=== PATIENT | female | born 1945 | race Caucasian/White ===

== ENCOUNTER 2019-12-02 11:37 | Emergency (ER) | payer MEDICARE, SELFPAY ==
[2019-12-02 11:46] VITALS: BP 148/76; PULSE 92; RESP 18; TEMP 36.9; O2SAT 94
--- NOTE | 2019-12-02 11:47 | ED.GENADULT ---
HPI - General Adult General Chief complaint: Urogenital-Female Stated complaint: Poss Bladder infection Time Seen by Provider: 12/02/19 12:04 Source: patient and RN notes reviewed Mode of arrival: ambulatory Limitations: no limitations History of Present Illness HPI narrative: This patient awakened this morning with frequency of urination with blood in the urine and suprapubic discomfort, but not real pain. She has not had any back pain or fever. She has had history of UTIs in the past of cystitis but never history of pyelonephritis or kidney stones. Her last UTI was approximately 6 months ago. She has otherwise been feeling well without any ear pain, no nasal drainage, no sore throat, no fever, no cough. She has had no blood in the stools or black stools. She has not had any history of any joint pain or swelling. She has had no arthralgias or myalgias. She is having no vaginal bleeding. Related Data Home Medications Medication Instructions Recorded Confirmed amlodipine 10 mg PO DAILY 12/02/19 12/02/19 Allergies Allergy/AdvReac Type Severity Reaction Status Date / Time amoxicillin Allergy Unknown Unknown Verified 12/02/19 11:43 iodine Allergy Unknown Hives Verified 12/02/19 11:43 Dezdsbq-Ksd-Vfr Reductase Allergy Unknown Unknown Verified 12/02/19 11:43 Inhibitor lisinopril AdvReac Unknown Cough Verified 12/02/19 11:43 Review of Systems Review of Systems: Narrative: CONSTITUTIONAL: Denies fever, chills, or sweats. Noncontributory except as pertains to the past medical history and the history of present illness. EYES: Denies visual changes, redness, or discharge. ENT: Denies rhinorrhea, congestion, sore throat, or otalgia. CARDIOVASCULAR: Denies chest pain, palpitations, or edema. RESPIRATORY: Denies cough or dyspnea. GASTROINTESTINAL: Denies abdominal pain, nausea, vomiting, or diarrhea. GENITOURINARY: Denies dysuria or hematuria. SKIN: Denies rash or itching. MUSCULOSKELETAL: Denies back pain, joint pain, or myalgia. NEUROLOGIC: Denies headache, numbness, or weakness. PSYCHIATRIC: Denies anxiety or depression. [facility] Family History Family History (Updated 01/28/18 @ 08:18 by DOCTOR UNKNOWN) Mother Family history of cardiovascular disease Family history of coronary artery disease Father Family history of lung cancer, Onset Age: 52 Other Carcinoma of colon Social History Social History Smoking status: Former smoker Smoking end date: 11/01/01 Alcohol intake: current Comments At time of signature, I have reviewed and agree with nursing past medical, surgical, social, and family history.Please see nursing chart for further information. There is no relevant family history pertinent to the presenting complaint. Exam Narrative: Exam Narrative: GENERAL: Well-appearing, well-nourished, and in no acute distress. HEAD: Normocephalic, atraumatic. EYES: PERRLA and EOMI. EARS: TM's clear bilaterally and the canals are clear. NOSE: Nares clear, no rhinorrhea or epistaxis. THROAT:Mucous membranes moist.Oropharynx normal without erythema or exudates. NECK: Supple. No adenopathy of the neck, supraclavicular, axillary, or inguinal areas. RESPIRATORY: No respiratory distress. Airway patent. Respirations non-labored. Clear to auscultation. There are no wheezes, no rales, no retractions, no use accessory muscles of respirations. The patient's not cyanotic and not dyspneic. The pulse ox on room air is 94% current temperature is 98.5. HEART: Regular rate and rhythm. No murmur heard. Normal peripheral pulses. ABDOMEN: Soft, nontender, nondistended, normal active bowel sounds.No masses. No rebound or guarding, No organomegaly. No CVA pain. No pain McBurney's point. Patient is a negative Pereira sign and negative Rovsing sign. There are no pulsatile masses no audible bruits. EXTREMITIES: No clubbing/cyanosis/ edema. Normal strength & range of motion. SKIN: Warm, dry.Normal color. There are no skin
== END 2019-12-02 12:38 | disposition home or self-care (01) ==
PROVIDERS: Emergency Provider Family Medicine; PCP Internal Medicine
DX: N30.01 Acute cystitis with hematuria (principal); Z87.891 Personal history of nicotine dependence; E78.00 Pure hypercholesterolemia, unspecified; I10 Essential (primary) hypertension; M19.90 Unspecified osteoarthritis, unspecified site; E03.9 Hypothyroidism, unspecified; F41.9 Anxiety disorder, unspecified; F32.9 Major depressive disorder, single episode, unspecified; Z96.1 Presence of intraocular lens
CPT/HCPCS: 81003; 87077; 87086; 87088; 87186; 99213; G0463

== ENCOUNTER 2020-01-05 14:11 | Emergency (ER) | payer MEDICARE, SELFPAY ==
--- NOTE | ~2020-01-05 | XR_ITS ---
EXAMINATION: XR hand RT min 3V, XR wrist RT min 3V DATE: 01/05/2020 15:01 INDICATION: Generalized right hand and wrist pain post fall TECHNIQUE: 1. Posteroanterior, ulnar deviation, oblique, and lateral views of the right wrist were obtained. 2. Dorsal palmar, oblique and lateral views of the right hand were obtained. COMPARISON: None. FINDINGS: Subtle minimally impacted, nondisplaced transverse fracture of the distal right radius. No definitive intra-articular extension. No other fractures identified although sensitivity for nondisplaced fract ure is decreased by diffuse osteopenia. Advanced osteoarthritis at the right first carpometacarpal joint with remodeling of the bones and pro minent associated hypertrophic changes. There is mild secondary dorsal subluxation and proximal migra tion of the first metacarpal. Moderate osteoarthritis at the second and third metacarpophalangeal tash nts with secondary slight palmar subluxation. Bone alignment is otherwise normal. Additional moderate osteoarthritis at the triscaphe joint. Mild osteoarthritis at the interphalangeal joints with distal predominance. IMPRESSION: 1. Nondisplaced minimally impacted likely extra articular fracture of the distal right radius. 2. 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 Reviewed, dictated and finalized at location A. CADDY IMPRESSION: 1. Nondisplaced minimally impacted likely extra articular fracture of the dista l right radius. 2. 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
[2020-01-05 14:27] VITALS: BP 133/61; PULSE 82; RESP 18; TEMP 36.3; O2SAT 96
--- NOTE | 2020-01-05 15:09 | ED.UPPEXIN ---
HPI - Extremity Injury (Upper) General Chief Complaint: Extremity Injury, Upper Stated Complaint: Injury to Righ Hand Time Seen by Provider: 01/05/20 15:09 Source: patient Mode of arrival: ambulatory Limitations: no limitations History of Present Illness HPI narrative: Saumya Hernández is a 74 yo feale with a PMH of anxiety, high blood pressure, hypothyroid, GERD, high cholesterol, who fell about 1 hour ago across a concrete bumper at the car wash. Fell on left wrist, complaining of pain on the dorsum side of hand and wrist, has minimal voluntary movement because of pain Related Data Home Medications Medication Instructions Recorded Confirmed alprazolam 0.25 mg PO TID PRN 01/05/20 01/05/20 amlodipine 10 mg PO DAILY 01/05/20 01/05/20 levothyroxine 75 mcg PO DAILY 01/05/20 01/05/20 omeprazole 40 mg PO DAILY 01/05/20 01/05/20 pravastatin 40 mg PO HS 01/05/20 01/05/20 Allergies Allergy/AdvReac Type Severity Reaction Status Date / Time amoxicillin Allergy Unknown Unknown Verified 01/05/20 14:45 iodine Allergy Unknown Hives Verified 01/05/20 14:45 Myrypwa-Ura-Xbl Reductase Allergy Unknown Unknown Verified 01/05/20 14:45 Inhibitor lisinopril AdvReac Unknown Cough Verified 01/05/20 14:45 Review of Systems Review of Systems: Narrative: CONSTITUTIONAL: Denies fever, chills, sweats. EYES: Denies visual changes, redness, discharge. ENT: Denies rhinorrhea, congestion, sore throat, otalgia. CARDIOVASCULAR: Denies chest pain, palpitations, edema. RESPIRATORY: Denies dyspnea, wheezing, cough GASTROINTESTINAL: Denies abdominal pain, nausea, vomiting, diarrhea. GENITOURINARY: Denies dysuria, hematuria, abnormal discharge SKIN: Denies rash or itching. NEUROLOGIC: Denies numbness, or focal weakness. PSYCHIATRIC: Denies anxiety or depression. Pain on left wrist dorsal side PMFSH Family History Family History Mother Family history of cardiovascular disease Family history of coronary artery disease Father Family history of lung cancer, Onset Age: 52 Other Carcinoma of colon Social History Social History (Reviewed 01/05/20 @ 15:16 by ZEE Steiner Smoking status: Former smoker Smoking end date: 11/01/01 Alcohol intake: current Comments At time of signature, I agree with nursing past medical, surgical, social and family history. There is no relevant family history pertinent to the presenting complaint. Exam Narrative: Exam Narrative: GENERAL: This is a well-nourished, well-developed patient, in moderate distress. HEAD: normocephalic, atraumatic. EYES: Sclera clear/white. Vision is grossly intact. EARS: External ears normal. Hearing grossly intact. NOSE: External nose normal with no obvious nasal discharge, nares without redness, no rhinorrhea. THROAT: Mucous membranes moist, NECK: Neck supple, non-tender CARDIOVASCULAR: Regular rate and rhythm without murmurs, gallops, or rubs. RESPIRATORY: Clear to auscultation. Breath sounds equal bilaterally. No wheezes, rales, or rhonchi. GASTROINTESTINAL: Abdomen soft, SKIN: warm, intact with no suspicious lesions or rash, good texture and turgor. NEURO: awake, alert, and oriented to person, place and time. There were no obvious focal neurologic abnormalities. Steady gait EXTREMITIES: Normal range of motion. No edema. BACK: Nontender without deformity or crepitance. Course Course Emergency Course: O-ybm-[id number] minimally impacted extra-articular fracture of the right radius Vital Signs Vital signs: Vital Signs Temperature 97.4 F L 01/05/20 14:27 Pulse Rate 82 01/05/20 14:27 Respiratory Rate 18 01/05/20 14:27 Blood Pressure 133/61 01/05/20 14:27 Pulse Oximetry 96 01/05/20 14:27 Temperature 97.4 F L 01/05/20 14:27 Pulse Rate 82 01/05/20 14:27 Respiratory Rate 18 01/05/20 14:27 Blood Pressure 133/61 01/05/20 14:27 Pulse Oximetry 96 01/05/20 14:27
== END 2020-01-05 16:11 | disposition home or self-care (01) ==
PROVIDERS: Emergency Provider Nurse Practitioner
DX: S52.551A Other extraarticular fracture of lower end of right radius, initial encounter for closed fracture (principal); F41.9 Anxiety disorder, unspecified; I10 Essential (primary) hypertension; E03.9 Hypothyroidism, unspecified; K21.9 Gastro-esophageal reflux disease without esophagitis; E78.00 Pure hypercholesterolemia, unspecified; W19.XXXA Unspecified fall, initial encounter; S52.124A Nondisplaced fracture of head of right radius, initial encounter for closed fracture; Z87.891 Personal history of nicotine dependence
CPT/HCPCS: 29125; 73110; 73130; 99214; A4565; G0463

== ENCOUNTER 2020-06-23 12:46 | Emergency (ER) | payer MEDICARE, SELFPAY ==
[2020-06-23 13:02] VITALS: BP 116/62; PULSE 83; RESP 20; TEMP 36.6; O2SAT 96
--- NOTE | 2020-06-23 14:19 | ED.GENADULT ---
HPI - General Adult General Chief complaint: Urogenital-Female Stated complaint: bladder infection Time Seen by Provider: 06/23/20 14:19 Source: patient and RN notes reviewed Mode of arrival: ambulatory Limitations: no limitations History of Present Illness HPI narrative: 74-year-old female presents with urinary complaints for 1 day. Dysuria consist of hemtauria, burning, frequency, and urgency.? No treatment.? Denies fever or chills. No significant pelvic pain. No vaginal discharge.? No concerns for STDs. Exacerbating factors urinating.? Denies vaginal bleeding. Postmenopausal. No flank pain. Denies nausea, vomiting, and abdominal pain.? Tolerating liquids well.? Remains active. The patient reports she have not been diagnosed with COVID-19. The patient reports she is not waiting for the results of a COVID-19 lab test. The patient reports she do not have fever, chills, weakness, fatigue, or myalgia. The patient reports she do not have a new or worsening cough or shortness of breath. Denies chest pain. The patient reports she do not have any rhinorrhea, congestion, sore throat, loss of taste, or diarrhea. Denies recent traveling. Denies concerns for COVID-19 or exposures been home with limited outdoor exposure except for essential household needs and return home. At this time, patient is not suspected of having COVID-19. Some parts of this dictation were generated by voice recognition software and may contain typographical and/or grammatical inaccuracies. Related Data Home Medications Medication Instructions Recorded Confirmed alprazolam 0.25 mg PO TID PRN 01/05/20 06/23/20 amlodipine 10 mg PO DAILY 01/05/20 06/23/20 levothyroxine 75 mcg PO DAILY 01/05/20 06/23/20 omeprazole 40 mg PO DAILY 01/05/20 06/23/20 pravastatin 40 mg PO HS 01/05/20 06/23/20 Allergies Allergy/AdvReac Type Severity Reaction Status Date / Time amoxicillin Allergy Unknown Unknown Verified 06/23/20 13:21 iodine Allergy Unknown Hives Verified 06/23/20 13:21 Dqsktov-Efd-Qsp Reductase Allergy Unknown Unknown Verified 06/23/20 13:21 Inhibitor lisinopril AdvReac Unknown Cough Verified 06/23/20 13:21 Review of Systems Review of Systems: Narrative: CONSTITUTIONAL: Denies fever, chills, sweats. EYES: Denies visual changes, redness, discharge. ENT: Denies rhinorrhea, congestion, sore throat, otalgia. CARDIOVASCULAR: Denies chest pain, palpitations, edema. RESPIRATORY: Denies dyspnea, wheezing, cough. GASTROINTESTINAL: Denies abdominal pain, nausea, vomiting, diarrhea. GENITOURINARY: Complains of dysuria (hematuria, burning, frequency, and urgency). Denies abnormal discharge. SKIN: Denies rash or itching. MUSCULOSKELETAL: Denies acute back pain, joint pain, or myalgia. NEUROLOGIC: Denies numbness or focal weakness. PSYCHIATRIC: Denies anxiety or depression. All systems reviewed & are unremarkable except as noted in HPI and below. [facility] Past Medical History Medical History (Updated 06/24/20 @ 00:00 by Kirby Osei) Anxiety Aortic aneurysm Arthritis Bronchitis Cataract Depression Distal radius fracture, right GERD (gastroesophageal reflux disease) Hernia High cholesterol Hx of migraines Hypertension Hypothyroid Irritable bowel Vision loss Surgical History Surgical History (Updated 06/23/20 @ 14:35 by MARLEY Marin) History of aortic aneurysm repair History of cardiac catheterization History of carpal tunnel release History of carpal tunnel surgery History of cholecystectomy History of hernia surgery Family History Family History Mother Family history of cardiovascular disease Family history of coronary artery disease Father , at age 52 of lungs cancer, smoker Family history of lung cancer, Onset Age: 52 Other Carcinoma of colon Social History Social History (Updated 06/30/20 @ 23:00 by MARLEY Marin) Kianna
== END 2020-06-23 14:45 | disposition home or self-care (01) ==
PROVIDERS: Emergency Provider Nurse Practitioner Family; PCP Internal Medicine
DX: R30.0 Dysuria (principal); R31.9 Hematuria, unspecified; Z87.891 Personal history of nicotine dependence; F41.9 Anxiety disorder, unspecified; M19.90 Unspecified osteoarthritis, unspecified site; K21.9 Gastro-esophageal reflux disease without esophagitis; E78.00 Pure hypercholesterolemia, unspecified; I10 Essential (primary) hypertension; E03.9 Hypothyroidism, unspecified
CPT/HCPCS: 81003; 87077; 87086; 87088; 87186; 99213; G0463

== ENCOUNTER 2020-10-10 09:49 | Outpatient (RCR) | payer MEDICARE, SELFPAY ==
--- NOTE | 2020-10-10 11:02 | PTOPEVAL ---
Thank you for referring Saumya Hernández to [facility].? The patient is scheduled to be seen for therapy? ____x/week for ___ weeks. Please review, sign, date and return this plan of care BERNARD. I agree with and certify that the following plan of care is medically necessary. Referring Physician Date Admitting Provider: Attending Provider: Remigio Mayen MD Referring Provider: *PT Outpatient Evaluation Start: 10/10/20 10:08 Freq: Status: Active Protocol: Document 10/10/20 10:05 [facility] (Rec: 10/10/20 11:01 [facility] [id number]) Therapy Assessment Status Assessment Status Assessment Status Evaluation Outpatient Past Medical History Neurological History Hx Migraine Yes Cardiovascular History Hx Hypercholesterolemia Yes Hx Hypertension Yes Hx Vascular Surgery Yes: AORTIC ANEURYSM REPAIR, CARDIAC CATH., STENTS BARBARA UPPER LEGS Respiratory History Hx Bronchitis Yes Gastrointestinal History Hx Bowel Surgery Yes Hx Cholecystectomy Yes Hx Gall Bladder Disease Yes Hx Hernia Yes Hx Irritable Bowel Yes Genitourinary History Hx Bladder Surgery Yes Musculoskeletal History Hx Arthritis Yes Hx Other Musculoskeletal Disorders Yes: BIALTERAL CARPAL TUNNEL SURGERY. Endocrine History Hx Hypothyroidism Yes HEENT History Hx Other HEENT Disorders Yes: CATARACT LENS IMPLANT. Integumentary History Hx Other Skin Disorders Yes: PRE CAN LESIONS REMOVED FROM SKIN Psychosocial History Hx Anxiety Yes Hx Depression Yes Evaluation Information Problem Diagnosis R hip bursitis, SI pain, scaitica Onset 10/08/20 Subjective Information patient reports she has been Query Text:As Reported By Patient/ having pain in the R hip area Family for about several months. she reports she fell in [place] broke her wrist. she reports the fall was to her R side. she reports the pain in her hip is progressively getting worse. she reports she used to be able to drive for hours without issues. however, now she has pain with short car rides. she reports the pain is on the outside of her R hip.
== END 2020-11-22 17:00 | disposition home or self-care (01) ==
LOC: CHSPT 09:49
PROVIDERS: Visit Provider Orthopaedic Surgery
DX: M70.61 Trochanteric bursitis, right hip (principal); M54.30 Sciatica, unspecified side
CPT/HCPCS: 97014; 97110; 97161; G0283

== ENCOUNTER → 2021-02-28 14:01 | Outpatient (CLI) | payer MEDICARE, SELFPAY ==
--- NOTE | ~2021-02-28 | MM_ITS ---
EXAMINATION: MM screening gem BI w jayme HISTORY: Screening mammogram TECHNIQUE: Craniocaudal and mediolateral oblique 3-D tomosynthesis images were obtained and synthetic 2-D images were generated. CAD analysis was submitted and interpreted. COMPARISON: 05/20/2018, 04/06/2016, 01/2014 bilateral digital screening mammogram examinations BREAST PARENCHYMAL COMPOSITION: There are scattered areas of fibroglandular density. FINDINGS: Stable fibroglandular asymmetry. Scattered bilateral benign calcifications. There is no marcos dence of suspicious mass, calcification, or architectural distortion to suggest malignancy in either breast. There has been no suspicious interval change. IMPRESSION: 1. No mammographic evidence of malignancy. 2. Recommend routine screening mammography in one year. BI-RADS Category 2: Benign finding(s). Reviewed, dictated and finalized at location A.
== END ==
PROVIDERS: PCP Internal Medicine; Visit Provider Internal Medicine
DX: Z12.31 Encounter for screening mammogram for malignant neoplasm of breast (principal)
CPT/HCPCS: 77063; 77067

== ENCOUNTER 2021-09-27 12:07 | Emergency (ER) | payer MEDICARE, SELFPAY ==
[2021-09-27 12:15] VITALS: BP 156/78; PULSE 86; RESP 16; TEMP 36.8; O2SAT 98
--- NOTE | 2021-09-27 13:13 | ED.FEMALEGU ---
HPI - Female Genitourinary General Chief complaint: Urogenital-Female Stated complaint: possible uti Time Seen by Provider: 09/27/21 13:00 Source: patient and RN notes reviewed Mode of arrival: ambulatory Limitations: no limitations History of Present Illness HPI Narrative: Patient presents today complaining of low back pain since last night with dysuria, urgency, frequency, hematuria, and lower abdominal pressure since morning. Denies fever. She has taken some Tylenol today with some relief. MD elicited complaint: UTI Related Data Home Medications Medication Instructions Recorded Confirmed alprazolam 0.25 mg PO TID PRN 01/05/20 09/27/21 amlodipine 10 mg PO DAILY 01/05/20 09/27/21 levothyroxine 75 mcg PO DAILY 01/05/20 09/27/21 omeprazole 40 mg PO DAILY 01/05/20 09/27/21 pravastatin 40 mg PO HS 01/05/20 09/27/21 cetirizine 10 mg tablet 10 mg PO DAILY 01/29/21 09/27/21 Allergies Allergy/AdvReac Type Severity Reaction Status Date / Time iodine Allergy Unknown Hives Verified 09/27/21 12:26 Ajkcghe-VDQ-XoL Reductase Allergy Unknown Unknown Verified 09/27/21 12:26 Inhibitor [Grrlzev-Aar-Bll Reductase Inhibitor] lisinopril AdvReac Unknown Cough Verified 09/27/21 12:26 Review of Systems Review of Systems: CONSTITUTIONAL: Denies body aches, fever, chills, or sweats. EYES: Denies visual changes, redness, or discharge. ENT: Denies rhinorrhea, congestion, sore throat, or otalgia. CARDIOVASCULAR: Denies chest pain, palpitations, or edema. RESPIRATORY: Denies cough or dyspnea. GASTROINTESTINAL: Denies abdominal pain, nausea, vomiting, or diarrhea. GENITOURINARY: + Dysuria, urgency, frequency, hematuria, lower abdominal pressure SKIN: Denies rash, itching, or wounds. MUSCULOSKELETAL: Denies joint pain, or myalgia. + Low back pain NEUROLOGIC: Denies headache, numbness, tingling, or weakness. PSYCH: Denies depression or anxiety. [facility] Past Medical History Medical History Anxiety Aortic aneurysm Arthritis Bronchitis Cataract Depression Distal radius fracture, right Dizziness GERD (gastroesophageal reflux disease) Hearing loss Hernia High cholesterol Hip pain Hx of migraines Hypertension Hypothyroid Irritable bowel Sacroiliac joint pain Sciatic leg pain Trochanteric bursitis, right hip Vision loss Surgical History Surgical History History of aortic aneurysm repair History of cardiac catheterization History of carpal tunnel release History of carpal tunnel surgery History of cholecystectomy History of hernia surgery Family History Family History Mother Family history of cardiovascular disease Family history of coronary artery disease Father , at age 52 of lungs cancer, smoker Family history of lung cancer, Onset Age: 52 Other Carcinoma of colon Social History Social History Smoking status: Former smoker Tobacco type: cigarettes Second hand tobacco smoke exposure: Yes Smoking end date: 11/01/01 Alcohol intake: current Substance use: never Gender identity (if verbalized by the patient): Female Sexual Orientation (if Verbalized by the Patient): Straight or Heterosexual Comments At time of signature, I have reviewed and agree with nursing past medical, surgical, social and family history unless otherwise noted. Please see nursing chart for further information. There is no relevant family history pertinent to the presenting complaint Exam Narrative: GENERAL: Well-appearing, well-nourished, and in no acute distress. HEAD: Normocephalic, atraumatic. EYES: EOMI. No redness or drainage. Conjunctivae normal. ENT: Mucous membranes pink and moist. NECK: Normal AROM. CHEST: No respiratory distress. Zuleika
== END 2021-09-27 13:21 | disposition home or self-care (01) ==
PROVIDERS: Emergency Provider Nurse Practitioner; PCP Internal Medicine
DX: N30.01 Acute cystitis with hematuria (principal); Z87.891 Personal history of nicotine dependence; M19.90 Unspecified osteoarthritis, unspecified site; K21.9 Gastro-esophageal reflux disease without esophagitis; E78.00 Pure hypercholesterolemia, unspecified; I10 Essential (primary) hypertension; E03.9 Hypothyroidism, unspecified; F41.9 Anxiety disorder, unspecified
CPT/HCPCS: 81003; 87077; 87086; 87186; 99213; G0463

== ENCOUNTER 2022-09-12 10:57 | Inpatient (IN) | payer MEDICARE, SELFPAY ==
[2022-09-12] VITALS (13 sets, daily range): BP systolic 107–166; BP diastolic 54–82; PULSE 73–107; RESP 14–20; TEMP 36.3–36.7; O2SAT 84–99
--- NOTE | ~2022-09-12 | CT_ITS ---
EXAMINATION: CT abdomen pelvis w con DATE: 09/13/2022 09:32 INDICATION: Hematuria TECHNIQUE: Computed tomography (CT) of the abdomen and pelvis was performed with 100 CC Omnipaque 350 intravenous contrast. Automated exposure control and iterative reconstruction technique were employe d. Exam dose: 517.99 mGy-cm total exam DLP. COMPARISON: 09/22/2020 CTA chest abdomen pelvis FINDINGS: Moderate emphysematous changes of the lungs. There is prominent patchy right lower lobe and minimal middle lobe infiltrate and/or atelectasis. Mild cardiomegaly. No pericardial or pleural effusion. Very large hiatal hernia containing the majority of the stomach. Several small hepatic cysts. The nubia er measures up to 23 cm vertical dimension. No hepatic surface nodularity is noted. Normal splenic si ze. Scattered calcified splenic granulomas. The gallbladder is absent. No bile duct or pancreatic duct dilatation. There are multiple pancreatic calcifications consistent with chronic pancreatitis. Normal right adrenal gland. Stable or retroperitoneal lymph to approximately 3 x 4.5 cm heterogeneously enhancing oval soft tissu e mass is noted at the posterior aspect of the left adrenal gland, situated along the superomedial as pect of the upper pole of the left kidney, unchanged in size since 09/22/2021 CTA chest abdomen pelvi s examination. No suspicious renal mass lesion is noted. No urinary tract calculus or hydroureteronephrosis. The uri nary bladder is unremarkable. Status post hysterectomy. Endovascular stents of the descending thoracic aorta and infrarenal abdominal aorta and common iliac arteries, stable in appearance since 09/22/2021. No intraperitoneal or retroperitoneal or pelvic mass lesion or adenopathy or ascites. Diverticulosis of the colon; no CT evidence of diverticulitis. No bowel obstruction or intraperitonea l free air. Tarlov cysts are noted in the sacral area. Severe degenerative disc disease at L5-S1. Moderately severe degenerative disc disease at L1-2 and L2 -3. Mild retrolisthesis at L3-4. No suspicious osteolytic or osteoblastic lesions. IMPRESSION: No urinary tract mass lesion, calculus or hydroureteronephrosis. Stable approximately 3 x 4.5 cm enhancing probable left adrenal mass, stable since 09/22/2021 Hepatomegaly Chronic pancreatitis Large hiatal hernia containing the majority the stomach Diverticulosis of the colon Descending thoracic aortic and infrarenal abdominal aortic and common iliac stents Reviewed, dictated and finalized at [facility]. Reviewed, dictated and finalized at [facility]. [employer] SUPERVISOR IMPRESSION: No urinary tract mass lesion, calculus or hydroureteronephrosis. Stable approximately 3 x 4.5 cm enhancing probable left adrenal mass, stable si nce 09/22/2021 Hepatomegaly Chronic pancreatitis Large hiatal hernia containing the majority the stomach Diverticulosis of the colon Descending thoracic aortic and infrarenal abdominal aortic and common iliac gaston nts
--- NOTE | ~2022-09-12 | XR_ITS ---
EXAMINATION: XR chest 2V DATE: 09/12/2022 11:39 INDICATION: Productive cough and shortness of breath TECHNIQUE: AP and lateral views of the chest are obtained. COMPARISON: 05/28/2009 FINDINGS: The lungs are hyperinflated but free of acute opacities. No pleural effusion or pneumothora x. The cardiomediastinal silhouette is normal. There is moderate thoracic spondylosis. There is endol uminal stent grafts repair of the distal thoracic and upper abdominal aorta. IMPRESSION: 1. No acute cardiopulmonary abnormality. Reviewed, dictated and finalized at [facility]. [employer] SPECIALIST
[2022-09-12] MEDS: ALBUTEROL SULFATE NEB 2.5 MG/3 ML INH 15 MG INHALATION (11:36)
[2022-09-12] MEDS: IPRATROPIUM BR 0.02% INH SOLN 0.5 MG/2.5 ML VIAL 1.5 MG INHALATION (11:36)
[2022-09-12] MEDS: methylPREDNISolone SOD SUCC 125 MG VIAL IV PUSH (11:58)
[2022-09-12 12:16] LABS: Basophils Percent Auto 0.3 % (0.2-1.2); Eosinophils Absolute Auto 0.1 K/mm3 (0-0.3); Eosinophils Percent Auto 0.9 % (0-4.4); Hematocrit 47.2 % (37.0-47.0); Hemoglobin 14.7 g/dL (12.0-15.0); Immature Granulocyte Absolute 0.03 K/mm3 (0.00-0.031); Immature Granulocyte Percent A 0.3 % (0-0.5); Lymphocytes Absolute Auto 1.57 K/mm3 (0.9-3.2); Lymphocytes Percent Auto 15.6 % (18.3-44.2); Mean Corpuscular HGB Conc 31.1 g/dl (32-36); Mean Corpuscular Hemoglobin 29.9 pg (26-34); Mean Corpuscular Volume 96.1 fl (80-100); Mean Platelet Volume 9.8 fl (7.4-10.4); Monocytes Absolute Auto 0.8 K/mm3 (0.1-0.6); Monocytes Percent Auto 7.8 % (2.6-8.5); Neutrophils Absolute Auto 7.6 K/mm3 (1.3-6.7); Neutrophils Percent Auto 75.1 % (45.5-73.1); Platelet Count Result 169 k/mm3 (150-375); Red Blood Count 4.91 M/mm3 (4.2-5.4); Red Cell Distribution Width 15.6 % (11.5-14.5); White Blood Count 10.1 K/mm3 (4.5-10.0)
[2022-09-12 12:26] LABS: Anion Gap 8 mmol/L (8-16); Blood Urea Nitrogen 18 mg/dL (7-17); Calcium 8.5 mg/dL (8.4-10.2); Carbon Dioxide 32 mmol/L (22-30); Chloride 100 mmol/L (98-107); Estimated CRCL calculation 53 ml/min; Estimated Glomerular Filt Rate > 60; Glucose 88 mg/dL (65-110); Potassium 3.9 mmol/L (3.4-5.0); Sodium 140 mmol/L (137-145)
[2022-09-12 12:52] LABS: SARS-CoV-2 RNA PCR Negative
--- NOTE | 2022-09-12 13:22 | ED.GENADULT ---
HPI - General Adult General Chief complaint: Upper Respiratory Infection Stated complaint: cough, failed antibiotic therapy, dyspnea Time Seen by Provider: 09/12/22 11:17 History of Present Illness HPI narrative: Patient is a 77-year-old female who presents ER with cough. Reports over the last 3 weeks she has had persistent cough that is productive of green sputum. She has been on Augmentin, cefdinir, and azithromycin without improvement. She is having increased shortness of breath. No fevers or chills or sweats. No chest pain or chest pressure. Patient does have history of COPD. Related Data Home Medications Medication Instructions Recorded Confirmed alprazolam 0.25 mg tablet 0.25 mg PO TID PRN Anxiety 01/05/20 09/27/21 amlodipine 10 mg tablet 10 mg PO DAILY 01/05/20 09/27/21 levothyroxine 75 mcg tablet 75 mcg PO DAILY 01/05/20 09/27/21 omeprazole 40 mg capsule,delayed 40 mg PO DAILY 01/05/20 09/27/21 release pravastatin 40 mg tablet 40 mg PO HS 01/05/20 09/27/21 cetirizine 10 mg tablet (Zyrtec) 10 mg PO DAILY 01/29/21 09/27/21 Allergies Allergy/AdvReac Type Severity Reaction Status Date / Time iodine Allergy Unknown Hives Verified 09/27/21 12:26 Igknkzy-SPL-GnF Reductase Allergy Unknown Unknown Verified 09/27/21 12:26 Inhibitor [Xtfvdpp-Mnt-Hya Reductase Inhibitor] lisinopril AdvReac Unknown Cough Verified 09/27/21 12:26 Review of Systems Review of Systems: All systems reviewed & are unremarkable except as noted in HPI and below Constitutional: Constitutional: Denies chills, Reports fatigue and Denies fever(s) ENT: Denies nasal congestion and Denies sore throat Cardiovascular: Cardiovascular: Denies chest pain, Denies rapid heart rate and Denies radiating jaw, neck or arm pain Respiratory: Respiratory: Reports cough, Reports dyspnea and Denies wheezing Gastrointestinal: Gastrointestinal: Denies abdominal pain, Denies nausea and Denies vomiting [facility] Past Medical History Medical History Anxiety Aortic aneurysm Arthritis Bronchitis Cataract Depression Distal radius fracture, right Dizziness GERD (gastroesophageal reflux disease) Hearing loss Hernia High cholesterol Hip pain Hx of migraines Hypertension Hypothyroid Irritable bowel Sacroiliac joint pain Sciatic leg pain Trochanteric bursitis, right hip Vision loss Surgical History Surgical History History of aortic aneurysm repair History of cardiac catheterization History of carpal tunnel release History of carpal tunnel surgery History of cholecystectomy History of hernia surgery Family History Family History Mother Family history of cardiovascular disease Family history of coronary artery disease Father , at age 52 of lungs cancer, smoker Family history of lung cancer, Onset Age: 52 Other Carcinoma of colon Social History Social History Smoking status: Former smoker Tobacco type: cigarettes Second hand tobacco smoke exposure: Yes Smoking end date: 11/01/01 Alcohol intake: current Substance use: never Gender identity (if verbalized by the patient): Female Sexual Orientation (if Verbalized by the Patient): Straight or Heterosexual Exam Narrative: GENERAL: Well-appearing, well-nourished, and in no acute distress. HEAD: Normocephalic, atraumatic. EYES: PERRL and EOMI. ENT: Mucous membranes moist. CHEST: Rhonchi and wheezing right lung zones. Mild. Diminished on left side.. No respiratory distress. HEART: Regular rate and rhythm. Normal peripheral pulses. ABDOMEN: Soft, nontender, nondistended. EXTREMITIES: Normal range of motion. No edema. SKIN: Warm, dry, no rash. NEURO: Alert and oriented x3. PSYCH: Normal mood and affec
[2022-09-12] MEDS: SODIUM CHLORIDE 0.9% IV 1,000 ML 999 ML IV CONT (13:56)
[2022-09-12 14:18] LABS: Appearance Urine Slightly Cloudy (Clear); Bilirubin Urine 2+ (Negative); Blood Urine 3+ (Negative); Glucose Urine UA Negative (Negative); Ketones Urine Trace mg/dL (Negative); Leukocyte Esterase Ur 1+ LEU/UL (Negative); Nitrate Urine Negative (Negative); Protein Urine 2+ mg/dL (Negative); Specific Grav Ur >= 1.030 (1.001-1.035); pH Urine 5.5 (5.0-9.0)
[2022-09-12 14:32] LABS: Mucus Urine Few /lpf; RBC Urine >75 /hpf (0-2); Squamous Epithelial Cell Urine Occasional /hpf (Few); WBC Urine >75 /hpf
[2022-09-12 14:34] LABS: Add Urine Microscopic? YES; Color Urine Dark Yellow (Yellow)
--- NOTE | 2022-09-12 15:00 | PM.IMHP ---
H&P: HPI History of Present Illness Date/Time: 09/12/22 15:00 Chief Complaint: Cough and shortness of breath. Narrative: This is a very pleasant 77-year-old female with suspected chronic obstructive pulmonary disease though she has not had a formal diagnosis of such, hypertension, hyperlipidemia, hypothyroidism, and anxiety presented to the emergency department from home for evaluation of cough and shortness of breath. She has not felt well for last 3 weeks and reports a persistent cough productive of green-yellow sputum, wheezing, and dyspnea on exertion. She has a rescue inhaler at home that she has used a couple of times though has not seemed to help. She has been prescribed several rounds of antibiotics including azithromycin, cefdinir, and amoxicillin-clavulanic acid and she reports that her symptoms have not improved whatsoever. SpO2 was 84% on room air on arrival to the emergency department and all other vital signs were unremarkable. She was placed on 4 liters nasal cannula and received a nebulizer treatment as well as Solu-Medrol IV and she reports feeling better at the time my evaluation. Again she has never been formally diagnosed with COPD and is not on maintenance inhalers at home. She was referred to a obstetrical nurse this summer but had to cancel the appointment after the of her sister and that was not rescheduled. She denies fever, chills, and sweats. She has had some chest discomfort and upper abdominal discomfort with coughing but she denies exertional chest pain. Appetite has been okay. She has not had nausea or vomiting. No sick contacts or recent travel. Review of Systems Review of Systems: Twelve systems were reviewed. She has chronic sinus issues. She reports chronic dyspnea on exertion and occasional wheezing. This has been ongoing for years. No orthopnea, paroxysmal nocturnal dyspnea, or lower extremity edema. She denies pleuritic chest pain. No dysphagia or concerns for aspiration. She has had some mild dysuria and she reports that her urine has been dark the last several days. She has not had low back or flank pain. No history of kidney stones. Except as documented, all other systems were reviewed and are negative. [facility] Past Medical History Medical History (Updated 09/12/22 @ 19:43 by Swapna Giraldo PA-C) Anxiety Aortic aneurysm Arthritis Depression Distal radius fracture, right Gastroesophageal reflux disease Hearing loss Hyperlipidemia Hypertension Hypothyroidism Irritable bowel Suspected chronic obstructive pulmonary disease based on initial evaluation Vision loss Surgical History Surgical History (Updated 09/12/22 @ 19:32 by Swapna Giraldo PA-C) History of aortic aneurysm repair History of bilateral carpal tunnel release History of cardiac catheterization History of cholecystectomy History of hernia surgery History of partial hysterectomy History of vascular surgery Lower extremity stents. Family History Family History Mother Family history of cardiovascular disease Family history of coronary artery disease Father , at age 52 of lungs cancer, smoker Family history of lung cancer, Onset Age: 52 Other Carcinoma of colon Social History Social History (Updated 09/12/22 @ 14:21 by Swapna Giraldo PA-C) Social History: Surrogate medical decision maker: Aaron Hernández, spouse. Code status: Full code. Smoking packs per day: 1 Smoking cigarettes per day: 20.0 Years smoked: 43 Smoking pack-years: 43.00 Smoking status: Former smoker Tobacco type: cigarettes Second hand tobacco smoke exposure: Yes Smoking end date: 11/01/01 Alcohol intake: never Substance use: never Substance use type: does not use Lack of Transportation: No Lack of Food: Never True Current Housing: I Have Housing Concerned About Future Housing: No Difficulty Paying Gas/Electric Bills: No
--- NOTE | 2022-09-12 15:21 | PC.NURSE ---
heart healthy standard food tray ordered
--- NOTE | 2022-09-12 16:31 | PCRCNOTE ---
Window of time for administration has passed. See next scheduled administration.
--- NOTE | 2022-09-12 17:16 | ADMGEN ---
This patient, Saumya Hernández, was admitted to [address] [place] [address] Room 300-01. Patient/family oriented to hospital policies and general routines including ID bracelet, bed and alarms, visiting hours, pain management, procedures, bathroom and other care routines, personal items, smoking policy, room service/diet, and visiting hours. Information on how to activate the Rapid Response Team has been discussed. Patient/Family are encouraged to report perceived risks to care and to ask questions if they do not understand what they are told or what they should do.
[2022-09-12] MEDS: SODIUM CHLORIDE 0.9% IV 1,000 ML 125 ML IV CONT (18:47)
[2022-09-12] MEDS: ACETAMINOPHEN 325 MG TABLET 650 MG PO (18:50)
[2022-09-12] MEDS: methylPREDNISolone SOD SUCC 125 MG VIAL 60 MG IV PUSH (20:32)
[2022-09-12] MEDS: guaiFENesin 12 HR 600 MG TABCR PO (20:35)
[2022-09-12] MEDS: PRAVASTATIN SODIUM 20 MG TABLET 40 MG PO (20:36)
[2022-09-12] MEDS: ALBUTEROL SULFATE NEB 2.5 MG/3 ML INH 5 MG INHALATION (21:18)
[2022-09-12] MEDS: IPRATROPIUM BR 0.02% INH SOLN 0.5 MG/2.5 ML VIAL INHALATION (21:18)
[2022-09-12] MEDS: ALPRAZolam (*CRX) 0.25 MG TABLET PO (23:17)
[2022-09-13] VITALS (8 sets, daily range): BP systolic 131–140; BP diastolic 63–76; PULSE 70–84; RESP 16–24; TEMP 36.2–36.5; O2SAT 92–95
[2022-09-13] MEDS: IPRATROPIUM BR 0.02% INH SOLN 0.5 MG/2.5 ML VIAL INHALATION ×3 (02:12→14:11)
[2022-09-13] MEDS: ALBUTEROL SULFATE NEB 2.5 MG/3 ML INH 5 MG INHALATION ×3 (02:13→14:11)
[2022-09-13] MEDS: methylPREDNISolone SOD SUCC 125 MG VIAL 60 MG IV PUSH ×4 (02:20→16:56)
[2022-09-13] MEDS: LEVOTHYROXINE SODIUM 75 MCG TABLET PO (05:41)
[2022-09-13 06:56] LABS: Hematocrit 40.1 % (37.0-47.0); Hemoglobin 12.3 g/dL (12.0-15.0); Mean Corpuscular HGB Conc 30.7 g/dl (32-36); Mean Corpuscular Hemoglobin 29.1 pg (26-34); Mean Corpuscular Volume 94.8 fl (80-100); Mean Platelet Volume 10.4 fl (7.4-10.4); Platelet Count Result 160 k/mm3 (150-375); Red Blood Count 4.23 M/mm3 (4.2-5.4); Red Cell Distribution Width 15.3 % (11.5-14.5); White Blood Count 8.1 K/mm3 (4.5-10.0)
[2022-09-13 07:07] LABS: Alanine Aminotransferase 15 U/L (6-35); Albumin Level 3.7 g/dL (3.5-5.1); Alkaline Phosphatase 80 U/L (38-126); Anion Gap 11 mmol/L (8-16); Aspartate Amino Transferase 23 U/L (14-36); Bilirubin,Total 0.3 mg/dL (0.2-1.3); Blood Urea Nitrogen 14 mg/dL (7-17); Calcium 7.7 mg/dL (8.4-10.2); Carbon Dioxide 30 mmol/L (22-30); Chloride 100 mmol/L (98-107); Estimated CRCL calculation 69 ml/min; Estimated Glomerular Filt Rate > 60; Glucose 140 mg/dL (65-110); Magnesium 1.6 mg/dL (1.6-2.3); Potassium 3.7 mmol/L (3.4-5.0); Sodium 141 mmol/L (137-145)
[2022-09-13] MEDS: diphenhydrAMINE HCl INJ 50 MG/ML VIAL IV PUSH (07:54)
[2022-09-13] MEDS: guaiFENesin 12 HR 600 MG TABCR PO ×2 (07:55→20:24)
[2022-09-13] MEDS: LORATADINE 10 MG TABLET PO (07:55)
[2022-09-13] MEDS: amLODIPine BESYLATE 5 MG TABLET 10 MG PO (07:55)
[2022-09-13] MEDS: PANTOPRAZOLE 40 MG TABLET PO ×2 (10:43→20:24)
--- NOTE | 2022-09-13 13:45 | PM.IMPN ---
Progress Note: A&P Assessment and Plan (1) Hypoxia: Code(s): R09.02 - Hypoxemia Status: Acute Assessment and Plan: Hypoxic on presentation had 84%. Likely secondary to suspected COPD exacerbation. Currently maintaining adequate O2 saturations on 4 L supplemental oxygen. Continue supplemental oxygen and wean as tolerated to goal saturations 92% or above. Home O2 eval prior to discharge (2) COPD exacerbation: Code(s): J44.1 - Chronic obstructive pulmonary disease with (acute) exacerbation Status: Suspected Assessment and Plan: Patient presented with ongoing productive cough and shortness of breath following completion of 3 antibiotic therapies. No findings to suggest pneumonia. Clinically, symptoms are consistent with COPD exacerbation. Continue Solu-Medrol 60 mg IV q.6. Wean as tolerated. Continue scheduled albuterol and ipratropium nebs q6h. Supportive care. Plan for outpatient pulmonology follow-up for PFTs and likely initiation of maintenance inhalers (3) Abnormal urinalysis: Code(s): R82.90 - Unspecified abnormal findings in urine Status: Acute Assessment and Plan: UA abnormal on presentation and patient endorsed dark urine over the past several days. Urine culture is pending. Holding antibiotics while awaiting culture results (4) Hematuria: Code(s): R31.9 - Hematuria, unspecified Status: Acute Assessment and Plan: As above, patient endorse dark urine. UA with 3+ blood. CT of the abdomen/pelvis has been completed for evaluation, pending radiology interpretation (5) Hypertension: Code(s): I10 - Essential (primary) hypertension Status: Acute Assessment and Plan: Blood pressures have been stable. Last BP 140/76. Continue amlodipine (6) Hypothyroidism: Code(s): E03.9 - Hypothyroidism, unspecified Status: Acute Assessment and Plan: Check TSH. Continue levothyroxine (7) Electrolyte abnormality: Code(s): E87.8 - Other disorders of electrolyte and fluid balance, not elsewhere classified Status: Acute Assessment and Plan: Magnesium is 1.6 today. Will administer 2 g IV magnesium sulfate. Calcium 7.7 with normal albumin, will begin Oscal BID. Subjective Date/time seen: 09/13/22 13:45 Interval history: Date of service: 09/13/2022 Saumya Hernández is a 69-year-old female with a history of anxiety, depression, aortic aneurysm, hypertension, hyperlipidemia, hypothyroidism, IBS, suspected COPD, and GERD who is seen in follow-up for COPD exacerbation. Today patient complains of weakness and persistent cough. Stated that her cough is been going on for several weeks and became so severe that she would almost pass out from coughing. This seems improved now she is coughing less frequently. She endorses yellow sputum production, noting as previously green. She also complains of sinus congestion. Endorses dyspnea on exertion conversational dyspnea, but shortness of breath at rest has improved significantly. She denies wheezing. She does have pleuritic chest pain with cough. She is not on home oxygen. She denies abdominal pain, nausea, vomiting, fever, chills, dizziness, lightheadedness. Reports a good appetite. States her last bowel movements 2 days ago. Denies urinary symptoms including hematuria. Review of Systems Review of Systems: All systems reviewed & are unremarkable except as noted in HPI and below Exam Narrative: General: Well-nourished, well-appearing 77-year-old female, sitting up in bed, comfortable, NARD Neuro: awake, alert and oriented x4, speech clear, no focal neuro deficits noted HEENMT: normocephalic, atraumatic, EOMI, sclerae anicteric, moist oral mucosa Respiratory: Diminished breath sounds bilaterally without obvious crackles, rhonchi, wheezes, nonlabored breathing Cardio: regular rate, regular rhythm with S1-S2 Abdomen: nondistended, no
[2022-09-13] MEDS: MAGNESIUM SULF 2 GM/WATER 50ML 2 GM/50 ML BAG IVPB (16:54)
[2022-09-13] MEDS: CALCIUM CARBONATE (OSCAL) 500 MG TABLET PO (16:55)
[2022-09-13] MEDS: PRAVASTATIN SODIUM 20 MG TABLET 40 MG PO (20:24)
[2022-09-13] MEDS: ALPRAZolam (*CRX) 0.25 MG TABLET PO (22:12)
[2022-09-13] MEDS: ACETAMINOPHEN 325 MG TABLET 650 MG PO (22:15)
--- NOTE | 2022-09-13 22:54 | PCRCNOTE ---
Window of time for administration has passed. See next scheduled administration.
[2022-09-14] VITALS (13 sets, daily range): BP systolic 108–117; BP diastolic 55–79; PULSE 75–93; RESP 18–22; TEMP 36.1–36.4; O2SAT 90–95
[2022-09-14] MEDS: IPRATROPIUM BR 0.02% INH SOLN 0.5 MG/2.5 ML VIAL INHALATION ×4 (02:46→20:21)
[2022-09-14] MEDS: ALBUTEROL SULFATE NEB 2.5 MG/3 ML INH 5 MG INHALATION ×4 (02:47→20:21)
[2022-09-14] MEDS: LEVOTHYROXINE SODIUM 75 MCG TABLET PO (05:46)
[2022-09-14] MEDS: methylPREDNISolone SOD SUCC 125 MG VIAL 60 MG IV PUSH ×4 (05:46→21:18)
[2022-09-14 07:13] LABS: Hematocrit 40.2 % (37.0-47.0); Hemoglobin 12.6 g/dL (12.0-15.0); Mean Corpuscular HGB Conc 31.3 g/dl (32-36); Mean Corpuscular Hemoglobin 29.7 pg (26-34); Mean Corpuscular Volume 94.8 fl (80-100); Mean Platelet Volume 10.1 fl (7.4-10.4); Platelet Count Result 172 k/mm3 (150-375); Red Blood Count 4.24 M/mm3 (4.2-5.4); Red Cell Distribution Width 15.8 % (11.5-14.5); White Blood Count 17.5 K/mm3 (4.5-10.0)
[2022-09-14 07:40] LABS: Alanine Aminotransferase 19 U/L (6-35); Albumin Level 3.6 g/dL (3.5-5.1); Alkaline Phosphatase 79 U/L (38-126); Anion Gap 11 mmol/L (8-16); Aspartate Amino Transferase 25 U/L (14-36); Bilirubin,Total 0.2 mg/dL (0.2-1.3); Blood Urea Nitrogen 16 mg/dL (7-17); Calcium 7.9 mg/dL (8.4-10.2); Carbon Dioxide 32 mmol/L (22-30); Chloride 97 mmol/L (98-107); Estimated CRCL calculation 60 ml/min; Estimated Glomerular Filt Rate > 60; Glucose 136 mg/dL (65-110); Magnesium 2.1 mg/dL (1.6-2.3); Potassium 3.5 mmol/L (3.4-5.0); Sodium 140 mmol/L (137-145)
[2022-09-14] MEDS: amLODIPine BESYLATE 5 MG TABLET 10 MG PO (09:26)
[2022-09-14] MEDS: CALCIUM CARBONATE (OSCAL) 500 MG TABLET PO ×2 (09:27→16:56)
[2022-09-14] MEDS: guaiFENesin 12 HR 600 MG TABCR PO ×2 (09:27→21:19)
[2022-09-14] MEDS: PANTOPRAZOLE 40 MG TABLET PO ×2 (09:27→21:19)
[2022-09-14] MEDS: LORATADINE 10 MG TABLET PO (09:27)
[2022-09-14] MEDS: ACETAMINOPHEN 325 MG TABLET 650 MG PO (09:39)
[2022-09-14] MEDS: SULFAMETHOXAZOLE/TRIMETHOPRIM 800/160 MG DS TABLET 1 TAB PO (15:49)
--- NOTE | 2022-09-14 16:57 | PM.IMPN ---
Progress Note: A&P Assessment and Plan (1) Hypoxia: Code(s): R09.02 - Hypoxemia Status: Acute Assessment and Plan: Hypoxic on presentation at 84%. Likely secondary to suspected COPD exacerbation. she has required up to 4 L supplemental O2.Currently maintaining adequate O2 saturations on 3 L. Wean oxygen as tolerated to goal saturations 92% or above. Home O2 eval prior to discharge (2) COPD exacerbation: Code(s): J44.1 - Chronic obstructive pulmonary disease with (acute) exacerbation Status: Suspected Assessment and Plan: Patient presented with ongoing productive cough and shortness of breath following completion of 3 antibiotic therapies. No findings to suggest pneumonia. Clinically, symptoms are consistent with COPD exacerbation. wean IV Solu-Medrol to 60 mg IV Q 8 hours. Continue scheduled albuterol and ipratropium nebs q6h. Supportive care. Plan for outpatient pulmonology follow-up for PFTs and likely initiation of maintenance inhalers (3) Abnormal urinalysis: Code(s): R82.90 - Unspecified abnormal findings in urine Status: Acute Assessment and Plan: UA abnormal on presentation and patient endorsed dark urine over the past several days. Urine culture with growth of Klebsiella aerogenes, resistant to Ceftriaxone which has now been discontinued. Transition to PO Bactrim for 5 days PO antibiotic therapy. (4) Hematuria: Code(s): R31.9 - Hematuria, unspecified Status: Acute Assessment and Plan: As above, patient endorse dark urine. UA with 3+ blood. CT of the abdomen/pelvis completed which does not reveal mass lesion of the urinary tract, calculus, or hydroureteronephrosis. hematuria resolved. Likely due to UTI as above (5) Hypertension: Code(s): I10 - Essential (primary) hypertension Status: Acute Assessment and Plan: Blood pressures have been stable. Continue amlodipine (6) Hypothyroidism: Code(s): E03.9 - Hypothyroidism, unspecified Status: Acute Assessment and Plan: TSH is pending. Continue levothyroxine (7) Electrolyte abnormality: Code(s): E87.8 - Other disorders of electrolyte and fluid balance, not elsewhere classified Status: Acute Assessment and Plan: magnesium improved to 2.1 today. Calcium improved to 7.9. Continue p.o. Oscal [address] of abdomen/ pelvis revealed left adrenal mass of stable size since prior CTA on 09/22/2021. Continue with outpatient monitoring Subjective Date/time seen: 09/14/22 16:57 Interval history: Date of service: 09/14/2022 Saumya Hernández is a 69-year-old female with a history of anxiety, depression, aortic aneurysm, hypertension, hyperlipidemia, hypothyroidism, IBS, suspected COPD, and GERD who is seen in follow-up for COPD exacerbation. states she feels poorly today. She is feeling blah. she feels like her shortness breath is slightly worsened. She complains of wheezing that is unchanged. Also endorses sinus drainage. She is coughing less often and feels that she has sputum that she needs to expect rate but she is not able to. She is able to ambulate with her walker and denies dizziness, lightheadedness, unsteadiness. Her appetite is down today. She denies fevers or chills. No chest pain. Review of Systems Review of Systems: All systems reviewed & are unremarkable except as noted in HPI and below Exam Narrative: General: Well-nourished, well-appearing 77-year-old female, sitting up in bed, comfortable, NARD Neuro: awake, alert and oriented x4, speech clear, no focal neuro deficits noted HEENMT: normocephalic, atraumatic, EOMI, sclerae anicteric, moist oral mucosa Respiratory: Diminished breath sounds bilaterally with expiratory wheezes, nonlabored breathing Cardio: regular rate, regular rhythm with S1-S2 Abdomen: nondistended, normoactive bowel sounds, soft, nontender to palpat
[2022-09-14] MEDS: ALPRAZolam (*CRX) 0.25 MG TABLET PO (21:19)
[2022-09-14] MEDS: PRAVASTATIN SODIUM 20 MG TABLET 40 MG PO (21:19)
[2022-09-15] VITALS (14 sets, daily range): BP systolic 112–128; BP diastolic 54–74; PULSE 86–114; RESP 14–20; TEMP 36.2–36.7; O2SAT 91–94
[2022-09-15] MEDS: IPRATROPIUM BR 0.02% INH SOLN 0.5 MG/2.5 ML VIAL INHALATION ×4 (01:09→20:27)
[2022-09-15] MEDS: ALBUTEROL SULFATE NEB 2.5 MG/3 ML INH 5 MG INHALATION ×4 (01:09→20:27)
[2022-09-15] MEDS: LEVOTHYROXINE SODIUM 75 MCG TABLET PO (05:43)
[2022-09-15] MEDS: methylPREDNISolone SOD SUCC 125 MG VIAL 60 MG IV PUSH (05:43)
[2022-09-15 06:28] LABS: Hematocrit 40.3 % (37.0-47.0); Hemoglobin 12.4 g/dL (12.0-15.0); Mean Corpuscular HGB Conc 30.8 g/dl (32-36); Mean Corpuscular Hemoglobin 29.4 pg (26-34); Mean Corpuscular Volume 95.5 fl (80-100); Mean Platelet Volume 10.6 fl (7.4-10.4); Platelet Count Result 188 k/mm3 (150-375); Red Blood Count 4.22 M/mm3 (4.2-5.4); Red Cell Distribution Width 15.7 % (11.5-14.5); White Blood Count 17.8 K/mm3 (4.5-10.0)
[2022-09-15 06:42] LABS: Anion Gap 10 mmol/L (8-16); Blood Urea Nitrogen 22 mg/dL (7-17); Calcium 8.3 mg/dL (8.4-10.2); Carbon Dioxide 31 mmol/L (22-30); Chloride 98 mmol/L (98-107); Estimated CRCL calculation 53 ml/min; Estimated Glomerular Filt Rate > 60; Glucose 121 mg/dL (65-110); Potassium 3.9 mmol/L (3.4-5.0); Sodium 139 mmol/L (137-145)
[2022-09-15] MEDS: CALCIUM CARBONATE (OSCAL) 500 MG TABLET PO ×2 (07:47→17:12)
[2022-09-15] MEDS: ACETAMINOPHEN 325 MG TABLET 650 MG PO (07:50)
[2022-09-15] MEDS: LORATADINE 10 MG TABLET PO (07:59)
[2022-09-15] MEDS: PANTOPRAZOLE 40 MG TABLET PO ×2 (07:59→20:54)
[2022-09-15] MEDS: amLODIPine BESYLATE 5 MG TABLET 10 MG PO (07:59)
[2022-09-15] MEDS: guaiFENesin 12 HR 600 MG TABCR PO ×2 (07:59→20:54)
[2022-09-15] MEDS: SULFAMETHOXAZOLE/TRIMETHOPRIM 800/160 MG DS TABLET 1 TAB PO ×2 (07:59→20:54)
--- NOTE | 2022-09-15 16:25 | PM.IMPN ---
Progress Note: A&P Assessment and Plan (1) Hypoxia: Code(s): R09.02 - Hypoxemia Status: Acute Assessment and Plan: Hypoxic on presentation at 84%. Likely secondary to suspected COPD exacerbation. she has required up to 4 L supplemental O2.Currently maintaining adequate O2 saturations on 3 L. Wean oxygen as tolerated to goal saturations 92% or above. Home O2 eval prior to discharge (2) COPD exacerbation: Code(s): J44.1 - Chronic obstructive pulmonary disease with (acute) exacerbation Status: Suspected Assessment and Plan: Patient presented with ongoing productive cough and shortness of breath following completion of 3 antibiotic therapies. No findings to suggest pneumonia. Clinically, symptoms are consistent with COPD exacerbation. wean IV Solu-Medrol to 40 mg IV Q12 hours. Continue scheduled albuterol and ipratropium nebs q6h. Sputum culture is negative. Supportive care. Plan for outpatient pulmonology follow-up for PFTs and likely initiation of maintenance inhalers (3) UTI (urinary tract infection): Code(s): N39.0 - Urinary tract infection, site not specified Status: Acute Assessment and Plan: UA abnormal on presentation and patient endorsed dark urine over the past several days. Urine culture with growth of Klebsiella aerogenes, resistant to Ceftriaxone which was discontinued on 09/14. continue PO Bactrim for 5 days PO antibiotic therapy ( started on 09/14). (4) Hematuria: Code(s): R31.9 - Hematuria, unspecified Status: Acute Assessment and Plan: As above, patient endorsed dark urine. UA with 3+ blood. CT of the abdomen/pelvis completed which does not reveal mass lesion of the urinary tract, calculus, or hydroureteronephrosis. hematuria resolved. Likely due to UTI as above (5) Hypertension: Code(s): I10 - Essential (primary) hypertension Status: Acute Assessment and Plan: Blood pressures have been stable. Continue amlodipine (6) Hypothyroidism: Code(s): E03.9 - Hypothyroidism, unspecified Status: Acute Assessment and Plan: TSH is pending. Continue levothyroxine (7) Electrolyte abnormality: Code(s): E87.8 - Other disorders of electrolyte and fluid balance, not elsewhere classified Status: Acute Assessment and Plan: hypomagnesemia resolved. Calcium improved to 8.3. Continue p.o. Oscal [address] of abdomen/ pelvis revealed left adrenal mass of stable size since prior CTA on 09/22/2021. Continue with outpatient monitoring Subjective Date/time seen: 09/15/22 16:25 Interval history: Date of service: 09/15/2022 Saumya Hernández is a 69-year-old female with a history of anxiety, depression, aortic aneurysm, hypertension, hyperlipidemia, hypothyroidism, IBS, suspected COPD, and GERD who is seen in follow-up for COPD exacerbation. She feels that her shortness of breath is slowly improving. She is not coughing very often and feels like she has phlegm to cough up but it is getting stuck in her throat. She continues to endorse wheezing. She has a headache today. Denies fevers , chills, nausea, vomiting, dizziness, lightheadedness. She does feel weak. Her appetite is good. She has been able to ambulate with her walker. Review of Systems Review of Systems: All systems reviewed & are unremarkable except as noted in HPI and below Exam Narrative: General: Well-nourished, well-appearing 77-year-old female, sitting up in bed, comfortable, NARD Neuro: awake, alert and oriented x4, speech clear, no focal neuro deficits noted HEENMT: normocephalic, atraumatic, EOMI, sclerae anicteric, moist oral mucosa Respiratory: Faint expiratory wheezes, nonlabored breathing Cardio: regular rate, regular rhythm with S1-S2 Abdomen: nondistended, normoactive bowel sounds, soft, nontender to palpation Extremities: no edema, erythema, or tenderness to palpati
[2022-09-15] MEDS: methylPREDNISolone SOD SUCC 40 MG VIAL IV PUSH (17:13)
[2022-09-15] MEDS: PRAVASTATIN SODIUM 20 MG TABLET 40 MG PO (20:54)
[2022-09-16] VITALS (17 sets, daily range): BP systolic 113–129; BP diastolic 61–76; PULSE 83–105; RESP 18–22; TEMP 36.3–36.6; O2SAT 87–95
[2022-09-16] MEDS: IPRATROPIUM BR 0.02% INH SOLN 0.5 MG/2.5 ML VIAL INHALATION ×3 (02:16→13:37)
[2022-09-16] MEDS: ALBUTEROL SULFATE NEB 2.5 MG/3 ML INH 5 MG INHALATION ×3 (02:16→13:37)
[2022-09-16] MEDS: LEVOTHYROXINE SODIUM 75 MCG TABLET PO (06:32)
[2022-09-16] MEDS: methylPREDNISolone SOD SUCC 40 MG VIAL IV PUSH ×2 (06:32→17:25)
[2022-09-16 06:35] LABS: Hematocrit 41.1 % (37.0-47.0); Hemoglobin 12.6 g/dL (12.0-15.0); Mean Corpuscular HGB Conc 30.7 g/dl (32-36); Mean Corpuscular Hemoglobin 29.5 pg (26-34); Mean Corpuscular Volume 96.3 fl (80-100); Mean Platelet Volume 10.2 fl (7.4-10.4); Platelet Count Result 194 k/mm3 (150-375); Red Blood Count 4.27 M/mm3 (4.2-5.4); Red Cell Distribution Width 15.7 % (11.5-14.5); White Blood Count 12.6 K/mm3 (4.5-10.0)
[2022-09-16 06:55] LABS: Alanine Aminotransferase 27 U/L (6-35); Albumin Level 3.4 g/dL (3.5-5.1); Alkaline Phosphatase 77 U/L (38-126); Anion Gap 5 mmol/L (8-16); Aspartate Amino Transferase 39 U/L (14-36); Bilirubin,Total 0.3 mg/dL (0.2-1.3); Blood Urea Nitrogen 21 mg/dL (7-17); Calcium 8.1 mg/dL (8.4-10.2); Carbon Dioxide 34 mmol/L (22-30); Chloride 97 mmol/L (98-107); Estimated CRCL calculation 60 ml/min; Estimated Glomerular Filt Rate > 60; Glucose 118 mg/dL (65-110); Sodium 136 mmol/L (137-145)
[2022-09-16 07:11] LABS: Thyroid Stimulating Hormone Reflex 0.458 uIU/mL (0.465-4.68)
[2022-09-16] MEDS: guaiFENesin 12 HR 600 MG TABCR PO ×2 (08:06→20:25)
[2022-09-16] MEDS: LORATADINE 10 MG TABLET PO (08:06)
[2022-09-16] MEDS: SULFAMETHOXAZOLE/TRIMETHOPRIM 800/160 MG DS TABLET 1 TAB PO ×2 (08:06→20:22)
[2022-09-16] MEDS: CALCIUM CARBONATE (OSCAL) 500 MG TABLET PO ×2 (08:06→17:25)
[2022-09-16] MEDS: PANTOPRAZOLE 40 MG TABLET PO ×2 (08:06→20:23)
[2022-09-16] MEDS: amLODIPine BESYLATE 5 MG TABLET 10 MG PO (08:06)
[2022-09-16] MEDS: ACETAMINOPHEN 325 MG TABLET 650 MG PO (11:52)
--- NOTE | 2022-09-16 14:59 | PM.IMPN ---
Progress Note: A&P Assessment and Plan (1) Hypoxia: Code(s): R09.02 - Hypoxemia Status: Acute Assessment and Plan: Hypoxic on presentation at 84%. Likely secondary to suspected COPD exacerbation. she has required up to 4 L supplemental O2.Currently maintaining adequate O2 saturations on 3 L. Wean oxygen as tolerated to goal saturations 92% or above. plan for home O2 eval today. Anticipate need for home oxygen therapy. (2) COPD exacerbation: Code(s): J44.1 - Chronic obstructive pulmonary disease with (acute) exacerbation Status: Suspected Assessment and Plan: Patient presented with ongoing productive cough and shortness of breath following completion of 3 antibiotic therapies. No findings to suggest pneumonia. Clinically, symptoms are consistent with COPD exacerbation. Continue IV solumedrol 40 mg q12h. Plan to transition to PO prednisone tomorrow. Continue albuterol and ipratropium nebs prn. sputum culture negative. Continue with supportive care. Plan for referral to outpatient pulmonology for PFTs and likely initiation of maintenance inhalers. hopeful discharge home tomorrow if continued improvement (3) UTI (urinary tract infection): Code(s): N39.0 - Urinary tract infection, site not specified Status: Acute Assessment and Plan: UA abnormal on presentation and patient endorsed dark urine over the past several days. Urine culture with growth of Klebsiella aerogenes, resistant to Ceftriaxone which was discontinued on 09/14. continue PO Bactrim for 5 days PO antibiotic therapy ( started on 09/14). (4) Hematuria: Code(s): R31.9 - Hematuria, unspecified Status: Resolved Assessment and Plan: As above, patient endorsed dark urine. UA with 3+ blood. CT of the abdomen/pelvis completed which does not reveal mass lesion of the urinary tract, calculus, or hydroureteronephrosis. hematuria resolved. Likely due to UTI as above (5) Hypertension: Code(s): I10 - Essential (primary) hypertension Status: Acute Assessment and Plan: Blood pressures have been stable. Continue amlodipine (6) Hypothyroidism: Code(s): E03.9 - Hypothyroidism, unspecified Status: Acute Assessment and Plan: TSH is slightly decreased with normal T4 and slightly decreased T3. Continue with levothyroxine at current dose and will need repeat TSH with reflex in 4-6 weeks as an outpatient (7) Electrolyte abnormality: Code(s): E87.8 - Other disorders of electrolyte and fluid balance, not elsewhere classified Status: Acute Assessment and Plan: hypomagnesemia resolved. Calcium improved to 8.1. Continue p.o. Oscal [address] of abdomen/ pelvis revealed left adrenal mass of stable size since prior CTA on 09/22/2021. Continue with outpatient monitoring Subjective Date/time seen: 09/16/22 14:59 Interval history: Date of service: 09/15/2022 Saumya Hernández is a 69-year-old female with a history of anxiety, depression, aortic aneurysm, hypertension, hyperlipidemia, hypothyroidism, IBS, suspected COPD, and GERD who is seen in follow-up for COPD exacerbation. She is feeling overall improved. Continues to endorse shortness of breath and some mild wheezing, however has been relieved during admission. She continues to endorse cough now productive of foamy white/ clear sputum. She denies chest pain. No abdominal pain, nausea, vomiting, fever, or chills. Diet is good. She is very eager for discharge home. Review of Systems Review of Systems: All systems reviewed & are unremarkable except as noted in HPI and below Exam Narrative: General: Well-nourished, well-appearing 77-year-old female, sitting up in bed, comfortable, NARD Neuro: awake, alert and oriented x4, speech clear, no focal neuro deficits noted HEENMT: normocephalic, atraumatic, EOMI, sclerae anicteric, moist oral mucosa Respir
--- NOTE | 2022-09-16 16:14 | HOMEO2EVAL ---
Evaluation was performed at [facility] Home Oxygen Evaluation RC: Home Oxygen (O2) Evaluation Start: 09/16/22 14:59 Freq: ONCE Status: Active Protocol: RPE Activity Type Activity Date Activity User E-sign Co-sign Detail Recorded Client Recorded Date Recorded By Document 09/16/22 15:15 [email or web address] [id number] 09/16/22 16:14 PKH Document 09/16/22 15:20 [email or web address] 09/16/22 16:14 PKH Document 09/16/22 15:25 [email or web address] [email or web address] 09/16/22 16:14 PKH Document 09/16/22 15:30 [email or web address] 09/16/22 16:14 PKH Document 09/16/22 15:40 [email or web address] [email or web address] 09/16/22 16:14 PKH Document 09/16/22 15:45 [email or web address] [email or web address] 09/16/22 16:14 PKH Document 09/16/22 16:00 [email or web address] [email or web address] 09/16/22 16:14 PKH 09/16/22 09/16/22 09/16/22 15:15 15:20 15:25 Home O2 Evaluation [Oxygen] -Test Phase Resting Exercise Exercise -Oxygen Delivery Room Air Nasal Cannula Nasal Cannula -Oxygen Flow Rate (L/min) 1 2 -Fraction of Inspired Oxygen (%) [Pulse Oximetry] -Pulse Oximetry (90-100 %) 92 87 L 87 L [Pulse Rate] -Pulse Rate (60-100 beats/min) 83 100 105 H [Exercise] -Ambulation Distance (feet) -Ambulation Distance (meters) [Comments] -Home Oxygen Evaluation Comments 09/16/22 09/16/22 09/16/22 15:30 15:40 15:45 Home O2 Evaluation [Oxygen] -Test Phase Exercise Exercise -Oxygen Delivery Nasal Cannula Nasal Cannula -Oxygen Flow Rate (L/min) -Fraction of Inspired Oxygen (%) 3 4 5 [Pulse Oximetry] -Pulse Oximetry (90-100 %) 87 L 87 L 90 [Pulse Rate] -Pulse Rate (60-100 beats/min) 102 H 95 99 [Exercise] -Ambulation Distance (feet) -Ambulation Distance (meters) [Comments] -Home Oxygen Evaluation Comments 09/16/22 16:00 Home O2 Evaluation [Oxygen] -Test Phase Resting -Oxygen Delivery Nasal Cannula -Oxygen Flow Rate (L/min) -Fraction of Inspired Oxygen (%) 1 [Pulse Oximetry] -Pulse Oximetry (90-100 %) 92 [Pulse Rate] -Pulse Rate (60-100 beats/min) 88 [Exercise] -Ambulation Distance (feet) 300 -Ambulation Distance (meters) 91.43 [Comments] -Home Oxygen Evaluation Comments PATIENT REQUIRES 1LPM WITH REST AND 5LPM WITH ACTIVITY
[2022-09-16] MEDS: PRAVASTATIN SODIUM 20 MG TABLET 40 MG PO (20:25)
[2022-09-16] MEDS: ALPRAZolam (*CRX) 0.25 MG TABLET PO (20:25)
[2022-09-17 03:10] VITALS: PULSE 80; RESP 18
[2022-09-17] MEDS: IPRATROPIUM BR 0.02% INH SOLN 0.5 MG/2.5 ML VIAL INHALATION (03:11)
[2022-09-17] MEDS: ALBUTEROL SULFATE NEB 2.5 MG/3 ML INH 5 MG INHALATION (03:12)
[2022-09-17 03:23] VITALS: PULSE 79; RESP 18
[2022-09-17 06:00] VITALS: BP 116/73; PULSE 98; RESP 16; TEMP 36.4; O2SAT 90
[2022-09-17] MEDS: LEVOTHYROXINE SODIUM 75 MCG TABLET PO (06:00)
[2022-09-17 06:35] LABS: Hematocrit 45.3 % (37.0-47.0); Hemoglobin 14.2 g/dL (12.0-15.0); Mean Corpuscular HGB Conc 31.3 g/dl (32-36); Mean Corpuscular Hemoglobin 29.8 pg (26-34); Mean Platelet Volume 9.9 fl (7.4-10.4); Platelet Count Result 217 k/mm3 (150-375); Red Blood Count 4.77 M/mm3 (4.2-5.4); Red Cell Distribution Width 15.6 % (11.5-14.5); White Blood Count 12.5 K/mm3 (4.5-10.0)
[2022-09-17 06:51] LABS: Anion Gap 12 mmol/L (8-16); Blood Urea Nitrogen 23 mg/dL (7-17); Calcium 8.4 mg/dL (8.4-10.2); Carbon Dioxide 29 mmol/L (22-30); Chloride 96 mmol/L (98-107); Estimated CRCL calculation 53 ml/min; Estimated Glomerular Filt Rate > 60; Glucose 113 mg/dL (65-110); Potassium 4.2 mmol/L (3.4-5.0); Sodium 137 mmol/L (137-145)
[2022-09-17 08:00] VITALS: O2SAT 90
[2022-09-17] MEDS: guaiFENesin 12 HR 600 MG TABCR PO (08:01)
[2022-09-17] MEDS: CALCIUM CARBONATE (OSCAL) 500 MG TABLET PO (08:01)
[2022-09-17] MEDS: predniSONE 20 MG TABLET 40 MG PO (08:01)
[2022-09-17] MEDS: LORATADINE 10 MG TABLET PO (08:01)
[2022-09-17] MEDS: SULFAMETHOXAZOLE/TRIMETHOPRIM 800/160 MG DS TABLET 1 TAB PO (08:01)
[2022-09-17] MEDS: PANTOPRAZOLE 40 MG TABLET PO (08:02)
[2022-09-17] MEDS: amLODIPine BESYLATE 5 MG TABLET 10 MG PO (08:02)
--- NOTE | 2022-09-17 09:58 | PM.DS ---
DS: Admitting Diagnosis Discharge Date 09/17/2022 Admitting Diagnosis hypoxia DS: Discharge Diagnosis Discharge Diagnosis (1) Hypoxia: Code(s): R09.02 - Hypoxemia Status: Acute Assessment and Plan: Hypoxic on presentation at 84%. Likely secondary to suspected COPD exacerbation. she required up to 4 L supplemental O2 during admission and was able to be weaned to 1 L supplemental O2 at rest. Home oxygen evaluation completed on 09/16/2022 which revealed oxygen requirement of 1 L at rest and 5 L with exertion. Home oxygen was initiated and patient has been referred to pulmonology as an outpatient. (2) COPD exacerbation: Code(s): J44.1 - Chronic obstructive pulmonary disease with (acute) exacerbation Status: Suspected Assessment and Plan: Patient presented with ongoing productive cough and shortness of breath following completion of 3 antibiotic therapies. No findings to suggest pneumonia. Clinically, symptoms consistent with COPD exacerbation. Received IV Solu-Medrol which was slowly weaned and transitioned to p.o. prednisone which she will continue for a total of 5 days. She had symptomatic improvement with steroids and scheduled bronchodilators. Sputum culture was negative. Supportive care was provided. Albuterol rescue inhaler provided. Will continue supplemental oxygen as described above. She was referred to outpatient pulmonology for PFTs and likely initiation of maintenance inhalers. (3) UTI (urinary tract infection): Code(s): N39.0 - Urinary tract infection, site not specified Status: Acute Assessment and Plan: UA abnormal on presentation and patient endorsed dark urine over the past several days prior to admission. Urine culture with growth of Klebsiella aerogenes, resistant to Ceftriaxone which was discontinued on 09/14. She was transitioned to p.o. Bactrim which she will continue for 5 days of antibiotic therapy. (4) Hematuria: Code(s): R31.9 - Hematuria, unspecified Status: Resolved Assessment and Plan: As above, patient endorsed dark urine prior to admission. UA with 3+ blood. CT of the abdomen/pelvis completed which does not reveal mass lesion of the urinary tract, calculus, or hydroureteronephrosis. Hematuria resolved. Likely due to UTI as above (5) Hypertension: Code(s): I10 - Essential (primary) hypertension Status: Acute Assessment and Plan: Blood pressures remained stable. Continue amlodipine (6) Hypothyroidism: Code(s): E03.9 - Hypothyroidism, unspecified Status: Acute Assessment and Plan: TSH is slightly decreased with normal T4 and slightly decreased T3. Continue with levothyroxine at current dose and will need repeat TSH with reflex in 4-6 weeks as an outpatient (7) Electrolyte abnormality: Code(s): E87.8 - Other disorders of electrolyte and fluid balance, not elsewhere classified Status: Acute Assessment and Plan: resume 1 monitor vitals supplemental of. Hypomagnesemia resolved. Patient was hypocalcemic with improvement following initiation of Oscal 500 mg daily which she will continue as an outpatient. Plan CT of abdomen/ pelvis revealed left adrenal mass of stable size since prior CTA on 09/22/2021. Continue with outpatient monitoring with PCP DS: Summary Hospital Course Hospital Course: date of admission: 09/12/2022 date of discharge: 09/17/2022 Saumya Hernández is a 69-year-old female with a history of anxiety, depression, aortic aneurysm, hypertension, hyperlipidemia, hypothyroidism, IBS, suspected COPD, and GERD? who presented to the emergency department on 09/12/2022 with complaints of shortness of breath on cough ongoing for 3 weeks following completion of Augmentin, cefdinir, and azithromycin as an outpatient with no significant improvement. On presentation to the ED, her vital signs were stable, she was hypoxic at 84%
== END 2022-09-17 11:50 | disposition home or self-care (01) | DRG 191 ==
LOC: ANHED 13:22 → ANH3MEDSUR 15:17
PROVIDERS: Physician Assistant; Admitting Provider Internal Medicine; Emergency Provider Emergency Medicine; PCP Internal Medicine; Visit Provider Internal Medicine
DX: J44.1 Chronic obstructive pulmonary disease with (acute) exacerbation (principal); N39.0 Urinary tract infection, site not specified; R09.02 Hypoxemia; B96.89 Other specified bacterial agents as the cause of diseases classified elsewhere; R31.9 Hematuria, unspecified; E27.9 Disorder of adrenal gland, unspecified; I10 Essential (primary) hypertension; E03.9 Hypothyroidism, unspecified; E83.42 Hypomagnesemia; E78.5 Hyperlipidemia, unspecified; K21.9 Gastro-esophageal reflux disease without esophagitis; K58.9 Irritable bowel syndrome, unspecified; F32.A Depression, unspecified; F41.9 Anxiety disorder, unspecified; Z20.822 Contact with and (suspected) exposure to COVID-19; Z79.899 Other long term (current) drug therapy; Z86.79 Personal history of other diseases of the circulatory system; Z87.891 Personal history of nicotine dependence
CPT/HCPCS: 36415; 71046; 74177; 80048; 80053; 81001; 83735; 84439; 84443; 84480; 85025; 85027; 87070; 87077; 87086; 87088; 87186; 87205; 94640; 94667; 94668; 96374; 96376; 99285; A9270; G0378; J0696; J1200; J2920; J2930; J3475; J7030; J7512; Q9967; U0003; U0005

== ENCOUNTER → 2022-09-23 10:31 | Outpatient (CLI) | payer MEDICARE, SELFPAY ==
--- NOTE | ~2022-09-23 | MM_ITS ---
EXAMINATION: MM screening gem BI w jayme HISTORY: Screening mammogram TECHNIQUE: Craniocaudal and mediolateral oblique 3-D tomosynthesis images were obtained and synthetic 2-D images were generated. CAD analysis was submitted and interpreted. COMPARISON: 02/28/2021, 05/20/2018, 04/06/2016 bilateral screening mammogram examinations BREAST PARENCHYMAL COMPOSITION: There are scattered areas of fibroglandular density. FINDINGS: Stable fibroglandular asymmetry. Scattered bilateral benign calcifications. There is no marcos dence of suspicious mass, calcification, or architectural distortion to suggest malignancy in either breast. There has been no suspicious interval change. IMPRESSION: 1. No mammographic evidence of malignancy. 2. Recommend routine screening mammography in one year. BI-RADS Category 2: Benign finding(s). Reviewed, dictated and finalized at location A. K SERVICES CLERK
== END ==
PROVIDERS: PCP Internal Medicine; Visit Provider Internal Medicine
DX: Z12.31 Encounter for screening mammogram for malignant neoplasm of breast (principal)
CPT/HCPCS: 77063; 77067

== ENCOUNTER 2022-10-27 11:54 | Outpatient (CLI) | payer MEDICARE, SELFPAY ==
--- NOTE | 2022-10-28 09:33 | WPDPFTINT ---
PFT Procedure Performed PFT Procedure Performed Spirometry with Pre/Post Bronchodilator Plethysmography (Lung Vol) Diffusing Cap (DLCO) Flow Vol Loop PFT Interpretation Lung volumes were measured with the body plethysmography method. Lung volumes are unremarkable. Spirometry showed diminished expiratory flow rates and a diminished FEV1 to FVC ratio 39%, indicative of obstructive airway disease. Following administration of a bronchodilator there was no significant increase in expiratory flow rates. Lung diffusion capacity is moderately reduced at 53% predicted. The flow volume loop is consistent with obstructive airway disease. Impression: Moderate obstructive airway disease with no response to bronchodilators on this testing. Moderately reduced lung diffusion capacity.
--- NOTE | 2022-10-28 09:35 | WPDSIXMINUTE ---
Six Minute Walk Procedure Procedure Performed Pulmonary Stress Test (6 min walk) Six Minute Walk Six Minute Walk: This 6 minute walk test was carried out with the patient breathing supplemental oxygen 2 liters/minute. The pre walk oxyhemoglobin saturation was 91%. The patient walked approximately 244 meters with no stops during testing. During the walk oxyhemoglobin saturation remained in the range of 89% to 91%. Impression: No significant oxyhemoglobin desaturation on this testing.
== END 2022-10-27 11:55 | disposition home or self-care (01) ==
LOC: ANHPFT 11:57
PROVIDERS: PCP Internal Medicine; Visit Provider Internal Medicine Pulmonary Disease
DX: J44.9 Chronic obstructive pulmonary disease, unspecified (principal)
CPT/HCPCS: 94060; 94618; 94726; 94729

== ENCOUNTER 2023-01-15 11:10 | Inpatient (IN) | payer MEDICARE, SELFPAY ==
[2023-01-15] VITALS (36 sets, daily range): BP systolic 86–151; BP diastolic 54–106; PULSE 89–103; RESP 16–30; TEMP 36.1–36.8; O2SAT 76–98; BMI 23.6
--- NOTE | ~2023-01-15 | XR_ITS ---
XR chest ET placement 01/16/2023 11:04 Indication: Confirm endotracheal tube placement. Respiratory distress. Procedure: AP portable chest Comparison: Comparison to multiple prior studies sequentially, with oldest reviewed study dated 05/28. Findings: Moderate cardiomegaly with pulmonary edema. Endotracheal tube tip 6.4 cm from the [place]. T here is an endovascular stent in the descending aorta. NG tube tip is located above the diaphragm, li ashutosh within a hiatal hernia. No significant effusion or pneumothorax. Left costophrenic recess is exc luded. Impression: 1: Cardiomegaly with pulmonary edema. Reviewed, dictated and finalized at location A. Impression: 1: Cardiomegaly with pulmonary edema.
--- NOTE | ~2023-01-15 | XR_ITS ---
XR chest 1V portable 01/16/2023 06:31 Indication: Worsening shortness of breath and chest pain Procedure: AP portable chest Comparison: Comparison to multiple prior studies sequentially, with oldest reviewed study dated 12/13. Findings: Cardiomegaly with worsening pulmonary edema. Small pleural effusions. No pneumothorax. Ther e is an endovascular stent of the descending thoracic aorta. Impression: 1: Cardiomegaly with worsening pulmonary edema. Reviewed, dictated and finalized at location A. Impression: 1: Cardiomegaly with worsening pulmonary edema.
--- NOTE | ~2023-01-15 | XR_ITS ---
XR abdomen NG/feed tube insert 01/16/2023 11:03 Indication: NG tube placement Procedure: Limited view of the lower chest and upper abdomen Comparison: 12/13/2007 Findings: NG tube identified with the tip near the expected location of the diaphragm, likely contain ed in a thoracic segment of hiatal hernia. Nonspecific bowel gas pattern. There is residual contrast in the renal collecting systems. There are endovascular stents present. Mild interstitial edema. Impression: 1: NG tube likely contained within intrathoracic stomach. Large hiatal hernia. Reviewed, dictated and finalized at location A. Impression: 1: NG tube likely contained within intrathoracic stomach. Large hiatal hernia.
--- NOTE | ~2023-01-15 | XR_ITS ---
EXAMINATION: XR chest 2V DATE: 01/15/2023 12:48 INDICATION: Shortness of breath. Cough. TECHNIQUE: Frontal and lateral views of the chest were obtained. COMPARISON: Chest 2 views 09/12/2022, chest CT 09/22/2021 FINDINGS: The lungs are hyperexpanded with lucencies, consistent with emphysema. There is mild scarri ng at the lung apices. There are airspace and interstitial opacities in the mid and lower lung zones. There are small pleural effusions. No pneumothorax. Cardiomegaly is noted. There is a large hiatal h ernia. There is a stent graft in distal thoracic aorta. There is a stent graft in abdominal aorta. IMPRESSION: 1. Airspace and interstitial opacities in the mid and lower lung zones, consistent with pulmonary bharathi ma versus pneumonia superimposed on emphysema. 2. Small pleural effusions. 3. Cardiomegaly. 4. Large hiatal hernia. Reviewed, dictated and finalized at location A. IMPRESSION: 1. Airspace and interstitial opacities in the mid and lower lung zones, consist ent with pulmonary edema versus pneumonia superimposed on emphysema. 2. Small pleural effusions. 3. Cardiomegaly. 4. Large hiatal hernia.
--- NOTE | 2023-01-15 11:12 | ECG_ITS ---
Measurements Intervals [place] Rate: 98 P: 63 ID: 168 QRS: 46 QRSD: 104 T: 147 QT: 391 QTc: 500 Interpretive Statements SINUS RHYTHM ATRIAL PREMATURE COMPLEX DELAYED PRECORDIAL R/S TRANSITION ST-T WAVE ABNORMALITY IN ANTEROLAT/HIGH LAT LEADS- CONSIDER ISCHEMIA BASELINE ARTIFACT- I, II, III, AVR, AVL, AVF, V1-V6 ABNORMAL ECG NO PREVIOUS ECG AVAILABLE FOR COMPARISON Electronically Signed On 01-15-2023 11:26:51 CDT by Preston Hanson D.O.
[2023-01-15] MEDS: IPRATROPIUM BR 0.02% INH SOLN 0.5 MG/2.5 ML VIAL 1.5 MG INHALATION (11:35)
[2023-01-15] MEDS: ALBUTEROL SULFATE NEB 2.5 MG/3 ML INH 15 MG INHALATION (11:35)
[2023-01-15 11:49] LABS: Basophils Absolute Auto 0.1 K/mm3 (0.0-0.1); Basophils Percent Auto 0.4 % (0.2-1.2); Eosinophils Absolute Auto 0.1 K/mm3 (0-0.3); Eosinophils Percent Auto 0.6 % (0-4.4); Hematocrit 47.3 % (37.0-47.0); Hemoglobin 14.6 g/dL (12.0-15.0); Immature Granulocyte Absolute 0.06 K/mm3 (0.00-0.031); Immature Granulocyte Percent A 0.4 % (0-0.5); Lymphocytes Absolute Auto 1.69 K/mm3 (0.9-3.2); Lymphocytes Percent Auto 11.2 % (18.3-44.2); Mean Corpuscular HGB Conc 30.9 g/dl (32-36); Mean Corpuscular Hemoglobin 29.6 pg (26-34); Mean Corpuscular Volume 95.9 fl (80-100); Mean Platelet Volume 10.6 fl (7.4-10.4); Monocytes Percent Auto 6.4 % (2.6-8.5); Neutrophils Absolute Auto 12.2 K/mm3 (1.3-6.7); Platelet Count Result 190 k/mm3 (150-375); Red Blood Count 4.93 M/mm3 (4.2-5.4); White Blood Count 15.1 K/mm3 (4.5-10.0)
[2023-01-15 12:04] LABS: Alanine Aminotransferase 33 U/L (6-35); Albumin Level 4.5 g/dL (3.5-5.1); Alkaline Phosphatase 104 U/L (38-126); Anion Gap 6 mmol/L (8-16); Aspartate Amino Transferase 168 U/L (14-36); Bilirubin,Total 0.6 mg/dL (0.2-1.3); Blood Urea Nitrogen 21 mg/dL (7-17); Calcium 8.7 mg/dL (8.4-10.2); Carbon Dioxide 27 mmol/L (22-30); Chloride 105 mmol/L (98-107); Estimated CRCL calculation 43 ml/min; Estimated Glomerular Filt Rate 54; Glucose 135 mg/dL (65-110); Potassium 4.7 mmol/L (3.4-5.0); Sodium 138 mmol/L (137-145)
[2023-01-15 12:24] LABS: Influenza A QL RT-PCR Negative (Negative); Influenza B QL RT-PCR Negative (Negative); SARS-CoV-2 RNA PCR Negative
--- NOTE | 2023-01-15 13:06 | ED.SOB ---
HPI - SOB/Dyspnea General Chief Complaint: Shortness of Breath/Dyspnea Stated Complaint: sob Time Seen by Provider: 01/15/23 11:21 History of Present Illness HPI Narrative: Patient is a 77-year-old female who presents ER shortness of breath. Reports last night she began to feel very short of breath that lasted throughout the night and into this morning. This prompted her to come to the ER. She has a history of COPD and is dependent on 2 L of oxygen chronically. She tried increasing her oxygen to 3 L without improvement. Associated with chest tightness. No radiation of chest discomfort. She reports mild cough that is nonproductive. No fevers or chills or sweats. She does endorse orthopnea. Patient reports she contacted her call center supervisor who is located in [place] regarding some chest pain that she has been having for last 2 weeks. Its been occurring with exertion getting better with rest. She is scheduled for stress test. Related Data Home Medications Medication Instructions Recorded Confirmed alprazolam 0.25 mg tablet 0.25 mg PO TID PRN Anxiety 01/05/20 01/15/23 amlodipine 10 mg tablet 10 mg PO DAILY 01/05/20 01/15/23 levothyroxine 75 mcg tablet 75 mcg PO DAILY 01/05/20 01/15/23 omeprazole 40 mg capsule,delayed 40 mg PO HS 01/05/20 01/15/23 release pravastatin 40 mg tablet 40 mg PO HS 01/05/20 01/15/23 cetirizine 10 mg tablet (Zyrtec) 10 mg PO DAILY 01/29/21 01/15/23 Allergies Allergy/AdvReac Type Severity Reaction Status Date / Time iodine Allergy Unknown Hives Verified 12/10/22 09:43 [id number]-OCX-JzY Reductase Allergy Unknown Unknown Verified 12/10/22 09:43 Inhibitor [Ixqkvzz-Yek-Cdx Reductase Inhibitor] lisinopril AdvReac Unknown Cough Verified 12/10/22 09:43 [facility] Past Medical History Medical History Anxiety Aortic aneurysm Arthritis Depression Distal radius fracture, right Gastroesophageal reflux disease Hearing loss Hyperlipidemia Hypertension Hypothyroidism Irritable bowel Suspected chronic obstructive pulmonary disease based on initial evaluation Vision loss Surgical History Surgical History History of aortic aneurysm repair History of bilateral carpal tunnel release History of cardiac catheterization History of cholecystectomy History of hernia surgery History of partial hysterectomy History of vascular surgery Lower extremity stents. Family History Family History Mother Family history of cardiovascular disease Family history of coronary artery disease Father , at age 52 of lungs cancer, smoker Family history of lung cancer, Onset Age: 52 Other Carcinoma of colon Social History Social History (Updated 01/15/23 @ 18:31 by Gustabo Hart RN) Social History: Surrogate medical decision maker: Aaorn Hernández, spouse. Code status: Full code. Smoking packs per day: 1 Smoking cigarettes per day: 20.0 Years smoked: 43 Smoking pack-years: 43.00 Smoking status: Former smoker Tobacco type: cigarettes Second hand tobacco smoke exposure: Yes Smoking end date: 11/01/01 Alcohol intake: never Substance use: never Substance use type: does not use Lack of Transportation: No Lack of Food: Never True Current Housing: I Have Housing Concerned About Future Housing: No Difficulty Paying Gas/Electric Bills: No Difficulty Paying for Meds: No Currently Unemployed: No Education: High School Diploma/GED Difficulty w/ Childcare or Family Care: No Living arrangements: with family Occupation/Education: retired Spiritual care concerns: No Course Course Emergency Course: Patient's lungs sound improved after nebulizer treatment but patient still with some persistent central chest pain that is 6/10. Her pressure is borderline in the 90s
[2023-01-15] MEDS: MORPHINE SULFATE (*CRX) 2 MG/ML INJ IV PUSH ×2 (13:23→22:08)
[2023-01-15 13:49] LABS: Prothrombin Time 12.9 Seconds (11.1-14.7)
[2023-01-15 13:51] LABS: Partial Thromboplastin Time 31.4 SECONDS (22.3-36.8)
[2023-01-15 13:58] LABS: NT Pro B Type Natriuretic Pept 12600 pg/mL (19.9-100)
[2023-01-15] MEDS: ASPIRIN 81 MG CHEWABLE TABLET 324 MG PO (14:09)
[2023-01-15] MEDS: HEPARIN SODIUM 5,000 UNITS/ML VIAL 4000 UNITS IV PUSH (14:09)
--- NOTE | 2023-01-15 14:15 | PM.IMHP ---
H&P: HPI History of Present Illness Date/Time: 01/15/23 14:15 Chief Complaint: Chest pain. Narrative: This is a very pleasant 77-year-old female with peripheral vascular disease, hypertension, hyperlipidemia, chronic respiratory failure on oxygen, and chronic obstructive pulmonary disease who presented to the emergency department for evaluation of chest pain. Patient provides the following history. She has experienced daily chest pain for the last couple of weeks. She describes a tightness and pressure-like sensation in the mid chest which does not radiate and seems to be worse with activity and better with rest. On occasion but not every time she will also have sweats and shortness of breath. She spoke with her mining detail draftsperson, Dr. Gautam, and she was given a prescription for nitroglycerin. She was also scheduled for an upcoming stress test. Unfortunately her pain has become more frequent and more intense and she came in today for evaluation. EKG today shows sinus rhythm with significant ST segment depression in the lateral leads and her initial troponin was 8.0. She has no known history of coronary artery disease but does have vascular disease with history of lower extremity stents an endovascular repair of a descending thoracic aortic aneurysm in August 2021. She is being admitted in this setting for close monitoring and Cardiology consultation. In the ED she was given aspirin 324 mg p.o. x1 and she was started on heparin drip. She continues to have mid chest discomfort. Review of Systems Review of Systems: Twelve systems were reviewed. No syncope or near syncope. No fever, chills, or sweats. No recent cold or flu symptoms. She denies pleuritic pain. No palpitations or sensations of racing heart. She denies nausea and vomiting. Except as documented, all other systems were reviewed and are negative. [facility] Past Medical History Medical History Anxiety Aortic aneurysm Arthritis Depression Distal radius fracture, right Gastroesophageal reflux disease Hearing loss Hyperlipidemia Hypertension Hypothyroidism Irritable bowel Suspected chronic obstructive pulmonary disease based on initial evaluation Vision loss Surgical History Surgical History History of aortic aneurysm repair History of bilateral carpal tunnel release History of cardiac catheterization History of cholecystectomy History of hernia surgery History of partial hysterectomy History of vascular surgery Lower extremity stents. Family History Family History Mother Family history of cardiovascular disease Family history of coronary artery disease Father , at age 52 of lungs cancer, smoker Family history of lung cancer, Onset Age: 52 Other Carcinoma of colon Social History Social History Social History: Surrogate medical decision maker: Aaron Hernández, spouse. Code status: Full code. Smoking packs per day: 1 Smoking cigarettes per day: 20.0 Years smoked: 43 Smoking pack-years: 43.00 Smoking status: Former smoker Tobacco type: cigarettes Second hand tobacco smoke exposure: Yes Smoking end date: 11/01/01 Alcohol intake: never Substance use: never Substance use type: does not use Lack of Transportation: No Lack of Food: Never True Current Housing: I Have Housing Concerned About Future Housing: No Difficulty Paying Gas/Electric Bills: No Difficulty Paying for Meds: No Currently Unemployed: No Education: High School Diploma/GED Difficulty w/ Childcare or Family Care: No Living arrangements: with family Occupation/Education: retired Spiritual care concerns: No Meds Home Medications and Allergies Home Medications Medication Instructions Recorded Confirm
[2023-01-15] MEDS: HEPARIN SOD/D5W 100 UNITS/ML 25,000 UNITS/250 ML BAG 9 UNITS IV CONT (14:40)
--- NOTE | 2023-01-15 14:51 | PM.CNCAR ---
Assessment and Plan Assessment and plan (1) Non-STEMI (non-ST elevated myocardial infarction): Code(s): I21.4 - Non-ST elevation (NSTEMI) myocardial infarction Status: Acute Plan This is a 77-year-old woman with extensive peripheral vascular disease known to have aortic disease lower extremity disease and carotid disease. She is presenting now with non ST elevation AK. She is hemodynamically stable in the chest pain that she had all night seems to be diminishing with time. She is currently 14 hours into this event at the time I am seeing her in the emergency room. Her ECG shows ST segment depression and her hemodynamics are stable. Furthermore she has a iodine allergy and at this point I would be of the opinion that region bring her to the color laboratory technician emergently is probably of more risk than benefit and I would treat her conservatively at this time. I will give her aspirin, clopidogrel and heparinize her. She will be admitted to the hospitalist service and we will follow along with you. I will go ahead and order some steroids in the event that she does require angiography. Bryan Ronquillo MD [facility] History of Present Illness History of Present Illness Consult date/time: 01/15/23 14:51 Reason For Visit: sob Narrative: This is a 77-year-old woman I am seeing at the request of the ER staff because of what appears to be acute coronary syndrome/non ST elevation AK. Patient is unknown to me prior to this encounter. She apparently is a patient of cardiology group elsewhere in has a significant history of peripheral vascular disease. The patient is a records are largely unavailable to me at the time of this dictation she began to experience symptoms of chest pain described as a central pressure-like sensation in the retrosternal region last night at about 10:00 p.m.. The pain was moderate when it began became relatively severe by midnight and through most of the night and this morning she decided to be addressed in come to this hospital emergency room for evaluation. None of her cardiovascular care is delivered it is therefore unclear as to why she chose to come to [facility]. In any event are her ER evaluation demonstrates electrocardiographic evidence of ischemia with sinus rhythm and significant lateral ST segment depression. There is no ST elevation. She states that the pain that she had last night is fading and is mild at this time. Her laboratory evaluation is remarkable for a troponin level of 8 as a result of that I have been called to the ER to come and see this lady. She appears to be in no significant distress at this time and is visiting with family members in the emergency room. I do have some records that indicate a history of peripheral vascular disease with previous lower extremity revascularization procedures as well as previous endovascular repair of a descending thoracic aortic aneurysm back in August of 2021. That was done at [facility] and I do have records of that procedure at the time of this could consultation that I was able to see from my office electronic record. She had a 5.5 cm saccular thoracic aneurysm that was treated with endovascular stenting. [place] for the procedure was via left femoral artery cutdown. According to the patient and the records I do not see any evidence of overt coronary artery disease her keyboarding clerk notes refer to her having a favorable stress test something like several years ago. She has a history of hypertension and dyslipidemia no history of diabetes the patient starts as she is allergic to statins and also allergic to iodine. She takes steroids before angiographic procedures normally because of the iodine allergy. The remainder of her lab data demonstrates that she is not anemic her renal function is preserved. Review of Systems Constitutional: Constitutional: Reports lethargy Eyes: Eyes: Reports no additional eye complaints ENT: Reports system reviewed and no add
[2023-01-15] MEDS: FUROSEMIDE INJ 40 MG/4 ML VIAL 20 MG IV PUSH (15:27)
[2023-01-15] MEDS: methylPREDNISolone SOD SUCC 125 MG VIAL IV PUSH (15:31)
--- NOTE | 2023-01-15 17:40 | ADMGEN ---
This patient, Saumya Hernández, was admitted to IMU Room at 206-01 at 1721. Patient/family oriented to hospital policies and general routines including ID bracelet, bed and alarms, visiting hours, pain management, procedures, bathroom and other care routines, personal items, smoking policy, room service/diet, and visiting hours. Patient denies chest pain but still sitting in a tripod position. Oxygen increased to 4 liters. patient is comfortable. Information on how to activate the Rapid Response Team has been discussed. Patient/Family are encouraged to report perceived risks to care and to ask questions if they do not understand what they are told or what they should do.
--- NOTE | 2023-01-15 18:53 | ECG_ITS ---
Measurements Intervals [place] Rate: 101 P: 66 [place]: 177 QRS: 27 QRSD: 99 T: 157 QT: 379 QTc: 492 Interpretive Statements SINUS TACHYCARDIA LOW QRS VOLTAGE IN LIMB LEADS BORDERLINE R WAVE PROGRESSION, ANTERIOR LEADS ST-T WAVE ABNORMALITY IN INF/LAT LEADS- CONSIDER ISCHEMIA BASELINE ARTIFACT- I, II, III, AVR, AVL, AVF, V1-V6 ABNORMAL ECG COMPARED TO ECG 01/15/2023 11:18:30 SINUS TACHYCARDIA NOW PRESENT Electronically Signed On 01-16-2023 8:03:12 CDT by Preston Hanson D.O.
[2023-01-15] MEDS: NITROGLYCERIN SL 0.4 MG TABLET (18:55)
[2023-01-15] MEDS: NITROGLYCERIN SL 0.4 MG TABLET SUBLINGUAL (19:03)
--- NOTE | 2023-01-15 20:21 | PC.NURSE ---
1845: Patient called asking to use the bathroom. She was assisted to a commode at the bedside. After about a minute, she started complaining of chest pain, non radiating but persistent sense of doom, andshe was diaphoretic. Swapna OPERATING ROOM NURSE called. Orders where given for nitroglycerin subligua and morphine and ECG 185: Nitroglycerin given sublingual with some relief. A second dose was given at 1900. Vital signs: BP 104/56. Oxygen 96% Heart rate 103.
[2023-01-15] MEDS: METOPROLOL TARTRATE 12.5 MG TABLET PO (21:06)
--- NOTE | 2023-01-15 22:59 | PM.EVENT ---
Event Note Event Note Event Note: Pt had CP earlier this evening when getting up going to the BR, relieved w/ TNG X2. Had more CP a short while ago improved w/ MSO4 but not resolved. CP 2/10 per RN. SBP in upper 90's. EKG personally reviewed; NSR [address] depression V 5-6 with 1-2 mm T inversion. Pt admitted w/ CHF; CXR reviewed, mod CHF. Received Lasix IVP earlier and I ordered daily IV lasix as well as ASA and metop q8h. BP is borderline. Pt being moved to the ICU for TNG gtt. I discussed the case w the interventionalist oracle solutions architect. Pt has an allergy to IV contrast and rec'd 1 dose IV steroids. Also has significant vascular dz. He obviously prefers not to intervene on a difficult case w/ vascular dz emergently if at all possible. We will try to settle her CP down w/ TNG, BB, heparin, etc.
--- NOTE | 2023-01-15 23:11 | ECG_ITS ---
Measurements Intervals [place] Rate: 93 P: 60 [place]: 177 QRS: 3 QRSD: 102 T: 206 QT: 424 QTc: 528 Interpretive Statements SINUS RHYTHM FREQUENT VENTRICULAR PREMATURE COMPLEXES BORDERLINE R WAVE PROGRESSION, ANTERIOR LEADS ST-T WAVE ABNORMALITY IN LAT/HIGH LAT LEADS- CONSIDER ISCHEMIA BASELINE ARTIFACT- I, II, III, AVR, AVL, AVF ABNORMAL ECG COMPARED TO ECG 01/15/2023 19:05:29 SINUS RHYTHM NOW PRESENT Electronically Signed On 01-16-2023 8:07:36 CDT by Preston Hanson D.O.
[2023-01-15] MEDS: CLOPIDOGREL BISULFATE 75 MG TABLET PO (23:53)
[2023-01-15] MEDS: PANTOPRAZOLE 40 MG TABLET PO (23:53)
[2023-01-15] MEDS: PRAVASTATIN SODIUM 20 MG TABLET 40 MG PO (23:53)
[2023-01-15] MEDS: NITROGLYCERIN/D5W 200 MCG/ML 50 MG/250 ML BTL IV CONT (23:59)
--- NOTE | 2023-01-15 23:59 | PC.NURSE ---
At 2208 on 01/15/23, the patient developed 10/10 chest pain. B/P 122/106. Morphine 2mg IVP given for pain. In 15 minutes, the pain came down to 2/10. EKG was obtained. I then called Dr. Manzo to notify her of changes. Repeat B/P 96/67. Orders to transfer the patient to the ICU and start her on a nitro drip at 10 mcg. I transferred the patient to ICU 11 at 2330. Report given to Kimberly FORD. EKG was faxed to Dr. Manzo.
[2023-01-16] VITALS (46 sets, daily range): BP systolic 86–125; BP diastolic 57–105; PULSE 74–109; RESP 7–42; TEMP 36.4–37.6; O2SAT 92–100
[2023-01-16] MEDS: HEPARIN SODIUM 5,000 UNITS/ML VIAL 3000 UNITS IV PUSH (00:26)
[2023-01-16] MEDS: ALPRAZolam (*CRX) 0.25 MG TABLET PO ×2 (02:00→05:57)
--- NOTE | 2023-01-16 05:38 | ECG_ITS ---
Measurements Intervals [place] Rate: 108 P: 65 MD: 184 QRS: 31 QRSD: 103 T: 120 QT: 331 QTc: 444 Interpretive Statements SINUS TACHYCARDIA ATRIAL PREMATURE COMPLEXES LOW QRS VOLTAGE IN LIMB LEADS BORDERLINE R WAVE PROGRESSION, ANTERIOR LEADS ST-T WAVE ABNORMALITY IN LATERAL LEADS- CONSIDER ISCHEMIA BASELINE ARTIFACT- I, II, III, AVR, AVL, AVF, V1-V6 ABNORMAL ECG COMPARED TO ECG 01/15/2023 22:24:28 SINUS TACHYCARDIA NOW PRESENT Electronically Signed On 01-16-2023 8:13:00 CDT by Preston Hanson D.O.
[2023-01-16] MEDS: MORPHINE SULFATE (*CRX) 2 MG/ML INJ IV PUSH (05:57)
[2023-01-16] MEDS: LEVOTHYROXINE SODIUM 75 MCG TABLET PO (06:02)
[2023-01-16] MEDS: METOPROLOL TARTRATE 12.5 MG TABLET PO (06:02)
[2023-01-16] MEDS: FUROSEMIDE INJ 40 MG/4 ML VIAL IV PUSH (06:03)
[2023-01-16] MEDS: diphenhydrAMINE HCl INJ 50 MG/ML VIAL 25 MG IV PUSH (06:04)
[2023-01-16] MEDS: methylPREDNISolone SOD SUCC 125 MG VIAL IV PUSH (06:04)
[2023-01-16 06:12] LABS: Alveolar/Arterial O2 Gradient 569.4 mmHg; Base Excess ABG -8.1 mEq/l (+/-2.0); Carboxyhemoglobin 0.3 % THb (0-2.0); Fractional Inspired Oxygen 100 %; HCO3 ABG 21.4 mEq/l (22.0-26.0); Methemoglobin ABG 0.2 %THb (0-1.5); Oxygen Content ABG 20.4 %vol (16.0-22.0); Oxyhemoglobin 92.9 % THb (90.0-100.0); PO2 FiO2 Ratio Arterial Blood 0.83 %; Reduced Hemoglobin 6.6 %THb (0-5.0); Total Hemoglobin 15.6 g/dL (12.0-18.0)
[2023-01-16 06:13] LABS: pH ABG 7.166 (7.350-7.450)
[2023-01-16 06:14] LABS: Device NON-REBREATHER MASK; Modified Allen's Test Pass; PCO2 ABG 60.6 mmHg (35.0-45.0); Site Drawn LEFT RADIAL
[2023-01-16] MEDS: diphenhydrAMINE HCl INJ 50 MG/ML VIAL (06:17)
[2023-01-16 06:21] LABS: Basophils Percent Auto 0.2 % (0.2-1.2); Hematocrit 53.6 % (37.0-47.0); Hemoglobin 16.2 g/dL (12.0-15.0); Immature Granulocyte Absolute 0.14 K/mm3 (0.00-0.031); Immature Granulocyte Percent A 0.6 % (0-0.5); Lymphocytes Absolute Auto 1.22 K/mm3 (0.9-3.2); Lymphocytes Percent Auto 5.5 % (18.3-44.2); Mean Corpuscular HGB Conc 30.2 g/dl (32-36); Mean Corpuscular Hemoglobin 30.5 pg (26-34); Mean Corpuscular Volume 100.8 fl (80-100); Mean Platelet Volume 11.2 fl (7.4-10.4); Monocytes Absolute Auto 1.1 K/mm3 (0.1-0.6); Monocytes Percent Auto 5.1 % (2.6-8.5); Neutrophils Absolute Auto 19.7 K/mm3 (1.3-6.7); Neutrophils Percent Auto 88.6 % (45.5-73.1); Platelet Count Result 222 k/mm3 (150-375); Red Blood Count 5.32 M/mm3 (4.2-5.4); Red Cell Distribution Width 15.1 % (11.5-14.5); White Blood Count 22.3 K/mm3 (4.5-10.0)
[2023-01-16] MEDS: IPRATROPIUM BR 0.02% INH SOLN 0.5 MG/2.5 ML VIAL INHALATION (06:30)
[2023-01-16] MEDS: LEVALBUTEROL NEB 1.25 MG/3 ML INHALATION (06:31)
[2023-01-16 06:34] LABS: Partial Thromboplastin Time 112.8 SECONDS (22.3-36.8)
[2023-01-16 06:35] LABS: Anion Gap 7 mmol/L (8-16); Blood Urea Nitrogen 31 mg/dL (7-17); Calcium 9.1 mg/dL (8.4-10.2); Carbon Dioxide 26 mmol/L (22-30); Chloride 105 mmol/L (98-107); Estimated CRCL calculation 36 ml/min; Estimated Glomerular Filt Rate 43; Glucose 222 mg/dL (65-110); Potassium 5.8 mmol/L (3.4-5.0); Sodium 138 mmol/L (137-145)
--- NOTE | 2023-01-16 06:37 | PM.EVENT ---
Event Note Event Note Event Note: 01/16/2022 at 05:45 Patient has a past medical history of COPD, peripheral artery disease and coronary disease is made to hospital for non STEMI. The patient was having recurrent severe substernal chest pain pressure-like in nature and was transferred to the ICU in the middle the night for nitro drip. Even on the nitro drip the patient had another episode of chest pain early this morning just before 06:00. At that time the patient also had increasing oxygen requirement. Evidently the patient has chronic home O2 requirement of 3 L nasal cannula bed at increased oxygen requirement 6 L overnight. Then had around 05:30 the patient developed increasing distress. She was having severe chest pain and was diaphoretic. She became more tachypneic. At that time her oxygen saturations dropped but the patient was mouth breathing. Nursing staff reported that earlier in the evening the but on a non-rebreather when she is asleep because she was breathing through her mouth while she was asleep and would drop her oxygen saturations. However early this morning even with the non-rebreather patient's oxygen saturations were remaining around 88%. She had increasing tachypnea. She had the crushing chest pain. The I ordered a stat ABG which was obtained and demonstrated acute hypercapnic respiratory failure. A stat EKG was performed which was unchanged from prior. The patient's troponins were elevated as high as 10.3 overnight at but repeat troponin after my evaluation was 19. I ordered a stat lactic acid which returned high at 2.5. The patient had already been placed on heparin drip on admission. Given her respiratory distress I did give the patient a dose of IV Lasix prior to her ABG returning. On exam patient had fine crackles anteriorly decreased breath sounds at the bases posteriorly. After being placed on BiPAP crackles had improved and patient had improved aeration. The patient was re-evaluated while she was receiving the Xopenex treatment. The patient is a stat labs returned with a BUN of 31 creatinine of 1.2 and potassium of 5.8. Patient's serum bicarb was stable at 26. The patient's troponin came back at 19.2 up from 10.3. The patient reports her chest pain was similar to when she had prior cardiac events. She reports that she feels as if something is sitting on her chest. Pain has improved with morphine. Patient was placed on BiPAP 14/10 with 100% FiO2 to maintain O2 sats 90-93%. The patient's glucoses are elevated to 222. The patient does not have a known history of diabetes. Patient's respiratory status improved after placed on BiPAP. Will start the patient on IV Solu-Medrol for dual purposes since patient is going to get some IV contrast and is going to go to the cardiac catheter builder with Dr. Maynor Cleveland. I feel she also needs some steroids for COPD and likely exacerbation. The patient has been placed on scheduled nebulizer treatments with Xopenex and Atrovent. 105 minute spent in critical care activities. The patient's case was discussed with the wedger and gluer and the catheter builder team prior to transition of care. Due to a high probability of clinically significant, life threatening deterioration, the patient required my highest level of preparedness to intervene emergently and I personally spent this critical care time directly and personally managing the patient. This critical care time included obtaining a history; examining the patient; pulse oximetry; ordering and review of studies; arranging urgent treatment with development of a management plan; evaluation of patient's response to treatment; frequent reassessment; and discussions with other providers. It was exclusive of separately billable procedures and treating other patients and teaching time. Please see Assessment and Plan section and the rest of the note for further information on patient assessment and treatment.
[2023-01-16 06:56] LABS: Lactic Acid Reflex 2.5 mmol/L (0.7-2.0)
[2023-01-16 06:58] LABS: Magnesium 2.7 mg/dL (1.6-2.3)
--- NOTE | 2023-01-16 07:30 | PC.NURSE ---
Tumbling And Rolling Supervisor nurses at bedside and took patient to laboratory supervisor.
[2023-01-16 07:32] LABS: Hemoglobin A1C 5.8 % (<5.7)
--- NOTE | 2023-01-16 08:00 | ECG_ITS ---
Measurements Intervals [place] Rate: 84 P: 60 ME: 166 QRS: 43 QRSD: 106 T: 215 QT: 431 QTc: 510 Interpretive Statements SINUS RHYTHM LOW QRS VOLTAGE IN LIMB LEADS ST-T WAVE ABNORMALITY IN ANTEROLATERAL LEADS- CONSIDER ISCHEMIA BASELINE ARTIFACT- I, II, III, AVR, AVL, AVF ABNORMAL ECG COMPARED TO ECG 01/16/2023 05:48:43 SINUS RHYTHM NOW PRESENT Electronically Signed On 01-16-2023 21:26:02 CDT by Preston Hanson D.O.
[2023-01-16 08:34] LABS: Alveolar/Arterial O2 Gradient 552.5 mmHg; Base Excess ABG -5.1 mEq/l (+/-2.0); Carboxyhemoglobin 0.2 % THb (0-2.0); Fractional Inspired Oxygen 100 %; HCO3 ABG 24.5 mEq/l (22.0-26.0); Methemoglobin ABG 0.3 %THb (0-1.5); Oxygen Content ABG 20.1 %vol (16.0-22.0); Oxygen Saturation ABG 95.2 % (95.0-100.0); PO2 ABG 94.3 mmHg (80.0-100.0); PO2 FiO2 Ratio Arterial Blood 0.94 %; Reduced Hemoglobin 4.5 %THb (0-5.0)
[2023-01-16 08:36] LABS: Device NON-INVASIVE VENT; Modified Allen's Test Pass; PCO2 ABG 66.2 mmHg (35.0-45.0); Site Drawn LEFT RADIAL; pH ABG 7.187 (7.350-7.450)
[2023-01-16 08:37] LABS: Non-Invasive Expiratory Pressure 10 CMH2O; Non-Invasive Inspiratory Pressure 14 CMH2O; Non-Invasive Vent Rate 20 /MIN
--- NOTE | 2023-01-16 09:29 | WPDCNINT ---
Assessment and Plan Assessment and plan (1) Acute on chronic respiratory failure with hypoxia and hypercapnia: Code(s): J96.21 - Acute and chronic respiratory failure with hypoxia; J96.22 - Acute and chronic respiratory failure with hypercapnia Status: Acute Assessment and Plan: Acute on chronic hypoxic and hypercarbic Respiratory failure secondary to COPD exacerbation and congestive heart failure Patient currently on BiPAP repeat ABG 7./ Chest x-ray shows Cardiomegaly with worsening pulmonary edema Although her ABG showed marginal improvement she continues to be acidotic and hypercarbic. She is still very hypoxic with 100% FiO2. In light NSTEMI and need for transfer to [facility] I decided to intubate patient and placed on mechanical ventilation. I discussed pros and cons of intubation mechanical ventilation with patient's at bedside and he verbalized understanding was agreeable to proceed. Patient was intubated without any complication. Chest x-ray was reviewed I will check ABG in 30 minutes Continue steroids for COPD exacerbation along with Bronchodilators Continue Lasix (2) Non-ST elevation [place] (NSTEMI): Code(s): I21.4 - Non-ST elevation (NSTEMI) myocardial infarction Status: Acute Assessment and Plan: Patient underwent cardiac catheterization which showed multivessel coronary disease especially on the left side with elevated LVEDP an EF of 30% Patient is being transferred to [facility] for advanced high risk PCI versus CABG and is awaiting bed assignment Currently on aspirin Plavix statin and heparin Hold SALVATORE-inhibitor and beta-kenya due to shock Will check echocardiogram if patient does not transfer soon Patient now intubated and sedated (3) COPD exacerbation: Code(s): J44.1 - Chronic obstructive pulmonary disease with (acute) exacerbation Status: Suspected Assessment and Plan: See above (4) Coronary artery disease: Code(s): I25.10 - Atherosclerotic heart disease of [place] coronary artery without angina pectoris Status: Acute Assessment and Plan: See above (5) Pulmonary edema: Code(s): J81.1 - Chronic pulmonary edema Status: Acute Assessment and Plan: See above (6) Elevated serum creatinine: Code(s): R79.89 - Other specified abnormal findings of blood chemistry Status: Acute Assessment and Plan: Creatinine slightly elevated at 1.2 Multifactorial Not a candidate for IV fluids Lasix is being given for volume overload Monitor urine output creatinine electrolytes Check CK level Check renal ultrasound if creatinine worsens (7) Hypothyroidism: Code(s): E03.9 - Hypothyroidism, unspecified Status: Acute Assessment and Plan: Continue levothyroxine TSH pending (8) Gastroesophageal reflux disease: Code(s): K21.9 - Gastro-esophageal reflux disease without esophagitis Status: Acute Assessment and Plan: Continue PPI (9) Hyperglycemia: Code(s): R73.9 - Hyperglycemia, unspecified Status: Acute Assessment and Plan: Patient does not have history of diabetes hence hyperglycemia could be related to steroids Sliding scale insulin ordered Plan DVT prophylaxis -heparin drip Stress ulcer prophylaxis -PPI Nutrition -NPO Code Status - Full Code Total Critical Care Time - 45 minutes except separately billed procedures Due to a high probability of clinically significant, life threatening deterioration, the patient required my highest level of preparedness to intervene emergently and I personally spent this critical care time directly and personally managing the patient. This critical care time included obtaining a history; examining the patient; pulse oximetry; ordering and review of studies; arranging urgent treatment with development of a management plan; evaluation of patient's response to treatment; frequent reassessment; and discussions with o
[2023-01-16 09:35] LABS: Reflex Lactic Acid Yes or No Add Lactic
--- NOTE | 2023-01-16 09:45 | WPDCARDPROC ---
Cardiac Cath Procedure Note Date of procedure:: 01/16/23 Performing physician:: Maynor Cleveland MD Date of service 01/16/2023 Indication:: NSTEMI Brief clinical history:: this 77-year-old female with history of previous TEVAR, EVAR with cut down both groins and patch repair the left groin, previous tobacco use, hyperlipidemia, hypothyroidism who presents the hospital with chest pain. Troponins elevated initially at 10. Initially was managed medically however patient kept having recurrent episodes of chest pain overnight and therefore decided to take her to the physical laboratory assistant this morning. Troponin peaked at 19. Procedure Procedure performed:: 1-Selective left and right coronary angiogram. 2-Left heart catheterization with measurement of LVEDP and measurement of gradient across aortic valve. 3- LV angiogram. 4- Peripheral angiogram of the distal aorta, bilateral common, external iliacs and bilateral common femoral arteries. 5- selective Right common femoral arterial angiogram. Sedation/Medication given:: local sedation. Access site:: Right common femoral artery. Estimated blood loss:: 10cc Procedure note:: After informed consent patient was brought in to physical laboratory assistant with the was draped and prepped in usual manner. Moderate sedation was given and the right groin was infiltrated using 1% lidocaine. Five Vietnamese sheath was obtained using micropuncture needle and the modified Seldinger technique. we did use Amplatzer stiff wire to get the access. And then after that we used long exchange J-wire to exchange catheters. Selective left coronary angiogram was done using JL4 catheter with the tip of the catheter placed in the left main coronary artery. Selective right coronary angiogram was done using JR4 catheter with the tip of the catheter placed to the right coronary artery. After that 5 Vietnamese pigtail catheter was advanced across the aortic valve into the left ventricle with measurement of LVEDP and measurement of gradient across aortic valve. LV angiogram was done. After that pigtail was pulled to the distal aorta and peripheral angiogram was done. Right common femoral arterial angiogram was done. Findings:: 1- left coronary artery is a large artery that divides into large LAD, large circumflex artery. Distal left main 80%. 2- left anterior descending artery is a large artery that runs and wraps around the apex. proximally there is calcification and probably 90% in the mid segment 90% before bifurcation with a medium-sized diagonal. ARTUR flow 2 3- leftcircumflex artery is a large artery with ostial disease 99% with ARTUR flow 2 4- right coronary artery is large artery with diffuse disease and the mid segment focal area of 50-60%. 5- LVEDP was 32 mm Hg and no gradient across aortic valve. 6- LV angiogram shows ejection fraction 30% with diffuse hypokinesis. 6- opening arterial pressure was 104/60 and closing pressure was 90/74 7- peripheral angiogram shows distal aorta EVAR. the right common and external iliac without significant disease. The right common femoral artery without significant disease as well. The left common iliac there is an area about 50% prior to bifurcation with the left internal iliac. Left external iliac looks unremarkable. Left femoral looks unremarkable. Conclusion:: - severe left main disease, lad, left circumflex artery borderline lesion in right coronary artery. - Severely elevated LVEDP. - ejection fraction estimated 30%. Assessment and Plan Assessment and plan (1) Non-STEMI (non-ST elevated myocardial infarction): Code(s): I21.4 - Non-ST elevation (NSTEMI) myocardial infarction Status: Acute Plan -we discussed with CT surgery at [facility] patient will be transferred under the CT surgery under Dr. pineda. - discussed with ICU team that patient might need intubation given her respiratory status severe acidosis. - hold off starting heparin for the next 6 hours to avoid bleeding from the right gr
--- NOTE | 2023-01-16 09:57 | PM.PNCARD ---
Progress Note: A&P Assessment and Plan (1) Non-ST elevation [place] (NSTEMI): Code(s): I21.4 - Non-ST elevation (NSTEMI) myocardial infarction Status: Acute Assessment and Plan: I was called on this patient last night around 11:00 p.m. because of chest pain and at that time spoke to Dr. Carlson. we agreed to transfer patient to the ICU and started on IV nitroglycerin and stabilize her. I did feel that taking this patient to general labor forklift operator at that time would be very challenging because this patient is known to have vascular access issues and it is difficult to do such complicated cases in the middle of the night if we manage to stabilize the patient on IV nitroglycerin. and he then was called again at 5:30 a.m. in the morning by Dr. om because patient is having more chest pain at this time. apparently patient was receiving IV heparin and the IV line got infiltrated and her right arm has a large hematoma that is covered now with compression dressing. She has another IV access line through which she is getting the IV heparin. I.e. did call the general labor forklift operator team and I drove here to the hospital and went to see the patient who was on BiPAP. apparently ABG shows pH 7.16, CO2 66 oxygen 83. at this time I went downstairs and reviewed her records from [facility] through our office and identified that the patient received EVAR and tEVAR and and looks that she had patch repair of the left femoral artery. I decided at this time that we can access the groin safely to perform the procedure. I did call her Aaron phone number [phone] and discussed with the risks and benefits of cardiac catheterization he agreed to proceed. - at the end of the procedure, unfortunately while doing serial dilatation to get Impella axis the wire was accidentally pulled out. and manual compression was held for 30 achieve hemostasis. - [facility] who did accept the patient to come under CT surgery service. I went again downstairs and spoke to her Aaron And updated him about the general labor forklift operator findings. I discussed with patient wishes and he confirms that she wants everything to be done. - spoke to Dr. Armenta and updated her about the general labor forklift operator. Discussed also with the ICU attending Dr. antoine and updated him about her respiratory status. Informed me that during the cardiac catheterization we did send another ABG that showed pH 7.18 C0 66 and oxygen 94. discussed that she might require ventilator. - at this time will plan to resume anticoagulation in 6 hours from now. mean while awaiting transfer to [facility] to [facility]. - this time also we discontinued IV nitroglycerin because patient was chest pain-free and because her blood pressures were soft. Will plan to resume IV nitroglycerin if she develops again more chest pain. - continue Plavix. Continue Lasix Time Spent With Patient Time: 120 minutes Subjective Date/time seen: 01/16/23 09:57: - I was called because patient kept having episodes of recurrent chest pain overnight. She was started on IV nitroglycerin and transferred to ICU. She also was kept on IV heparin. Apparently developed right arm hematoma from infiltration. it is fairly large hematoma and compression dressings applied. her respiratory status also worsened and currently on BiPAP. Review of Systems Review of Systems: Fatigue and tired Constitutional: Comments: fatigue and tired Eyes: Comments: no discharge ENT: Comments: no ear discharge Cardiovascular: Comments: chest pain Respiratory: Comments: shortness of breath Gastrointestinal: Comments: no nausea or vomiting Genitourinary: Comments: has Schaffer catheter Musculoskeletal: Comments: no joint swelling Integumentary/Breasts: Comments: large hematoma right arm across the antecubital area Neurologic: Comments: somewhat somnolent but moves all extre
[2023-01-16 10:13] LABS: Activated Clotting Time 143 SEC (74-137)
[2023-01-16 10:15] LABS: Thyroid Stimulating Hormone Reflex 0.916 uIU/mL (0.465-4.68)
[2023-01-16] MEDS: FENTANYL 2,500MCG/NS250ML(*CRX 2,500 MCG/250 ML BAG IV CONT (11:05)
[2023-01-16] MEDS: MIDAZOLAM 100MG/NS 100ML(*CRX) 100 MG/100 ML BAG IV CONT (11:06)
[2023-01-16] MEDS: ETOMIDATE 20 MG/10 ML AMPUL IV PUSH (11:07)
[2023-01-16] MEDS: ROCURONIUM BROMIDE 50 MG/5 ML VIAL IV PUSH (11:07)
[2023-01-16] MEDS: MIDAZOLAM HCL (*CRX) 2 MG/2 ML VIAL 4 MG IV PUSH (11:07)
--- NOTE | 2023-01-16 11:09 | PCRCNOTE ---
Window of time for administration has passed. See next scheduled administration.
[2023-01-16 11:33] LABS: Alveolar/Arterial O2 Gradient 558.6 mmHg; Base Excess ABG -4.2 mEq/l (+/-2.0); Fractional Inspired Oxygen 100 %; HCO3 ABG 23.4 mEq/l (22.0-26.0); Oxygen Content ABG 20.4 %vol (16.0-22.0); Oxygen Saturation ABG 96.8 % (95.0-100.0); Oxyhemoglobin 96.1 % THb (90.0-100.0); PCO2 ABG 52.5 mmHg (35.0-45.0); PO2 ABG 101.9 mmHg (80.0-100.0); PO2 FiO2 Ratio Arterial Blood 1.02 %
[2023-01-16 11:34] LABS: Device VENTILATOR; Modified Allen's Test Pass; Site Drawn RIGHT RADIAL; pH ABG 7.267 (7.350-7.450)
[2023-01-16 11:35] LABS: Arterial Blood Gas PEEP 8 cmH2O; Arterial Blood Gas Tidal Volume 400 ml; Arterial Blood Gas Vent Mode CMV; Arterial Blood Gas Ventilator rate 22 /MIN
--- NOTE | 2023-01-16 12:05 | PM.TDS ---
Transfer Discharge Sum: Prov Provider Date of admission: 01/15/23 14:03 Primary care physician: Bernardino Roblero, Admitting clinician: Mechelle Fletcher MD Consults: 01/15/23 Consult to Physician Routine Comment: Consulting Provider: Emeli Manzo filer finish/MD group to consult: surgical elastic knitter Reason for consultation: non STEMI Has provider been notified: Yes 01/15/23 13:28 Consult to Physician Routine Comment: Consulting Provider: Bryan Bates filer finish/MD group to consult: Jana Reason for consultation: nstemi Has provider been notified: Yes 01/16/23 Consult to Physician Routine Comment: Consulting Provider: Maximo Jaramillo filer finish/MD group to consult: icu surgical elastic knitter Reason for consultation: n stemi Has provider been notified: Yes DS: Admitting Diagnosis Discharge Date 01/16/23 Admitting Diagnosis Chest pain DS: Discharge Diagnosis Discharge Diagnosis (1) Acute on chronic respiratory failure with hypoxia and hypercapnia: Code(s): J96.21 - Acute and chronic respiratory failure with hypoxia; J96.22 - Acute and chronic respiratory failure with hypercapnia Status: Acute (2) Non-ST elevation [place] (NSTEMI): Code(s): I21.4 - Non-ST elevation (NSTEMI) myocardial infarction Status: Acute (3) COPD exacerbation: Code(s): J44.1 - Chronic obstructive pulmonary disease with (acute) exacerbation Status: Suspected (4) Coronary artery disease: Code(s): I25.10 - Atherosclerotic heart disease of [place] coronary artery without angina pectoris Status: Acute (5) Pulmonary edema: Code(s): J81.1 - Chronic pulmonary edema Status: Acute (6) Elevated serum creatinine: Code(s): R79.89 - Other specified abnormal findings of blood chemistry Status: Acute (7) Hypothyroidism: Code(s): E03.9 - Hypothyroidism, unspecified Status: Acute (8) Gastroesophageal reflux disease: Code(s): K21.9 - Gastro-esophageal reflux disease without esophagitis Status: Acute (9) Hyperglycemia: Code(s): R73.9 - Hyperglycemia, unspecified Status: Acute Transfer Discharge Sum: Med Medications Active and Home Medications: Home Medications alprazolam 0.25 mg tablet 0.25 mg PO TID PRN Anxiety 01/05/20 [History Confirmed 01/15/23] amlodipine 10 mg tablet 10 mg PO DAILY 01/05/20 [History Confirmed 01/15/23] levothyroxine 75 mcg tablet 75 mcg PO DAILY 01/05/20 [History Confirmed 01/15/23] omeprazole 40 mg capsule,delayed release 40 mg PO HS 01/05/20 [History Confirmed 01/15/23] pravastatin 40 mg tablet 40 mg PO HS 01/05/20 [History Confirmed 01/15/23] cetirizine 10 mg tablet (Zyrtec) 10 mg PO DAILY 01/29/21 [History Confirmed 01/15/23] Active Medications Alprazolam (Alprazolam (*Crx) 0.25 Mg Tablet) 0.25 mg FEED TUBE TID PRN PRN Reason: Anxiety Aspirin (Aspirin 81 Mg Chewable Tablet) 81 mg FEED TUBE DAILY@0800 [facility] Clopidogrel Bisulfate (Clopidogrel Bisulfate 75 Mg Tablet) 75 mg FEED TUBE QAM [facility] Dextrose (Dextrose 50% 25 Gm/50 Ml Syringe) 12.5 gm IV PUSH PRN PRN; Protocol PRN Reason: Hypoglycemia Furosemide (Furosemide Inj 40 Mg/4 Ml Vial) 40 mg IV PUSH DAILY [facility] Last Admin: 01/16/23 06:03 Dose: 40 mg Glucagon (Glucagon For Inj 1 Mg Vial) 1 mg IM PRN PRN; Protocol PRN Reason: Hypoglycemia Glucose (Glucose Oral Gel 15 Gm Of Glucse In 37.5 Gm Tube) 15 gm PO PRN PRN; Protocol PRN Reason: Hypoglycemia Heparin Sodium (Porcine) (Heparin Sodium 5,000 Units/Ml Vial) 4,000 units IV PUSH PRN PRN PRN Reason: aPTT less than 55 seconds Heparin Sodium (Porcine) (Heparin Sodium 5,000 Units/Ml Vial) 3,000 units IV PUSH PRN PRN PRN Reason: aPTT 55 - 70 seconds Last Admin: 01/16/23 00:26 Dose: 3,000 units Heparin Sodium/Dextrose (Heparin Sodium/D5w 100 Units/Ml) 25,000 units in 250 mls @ 0 mls/hr IV CONT .Q0M KESHAWN; Protocol Last Titration: 01/16/23 07:30 Dose: 0 units/hr, 0 mls/hr Nit
--- NOTE | 2023-01-16 12:20 | PC.NURSE ---
obtained at bed at [place] [id number]. [facility] called and patient transfered at 1220.
--- NOTE | 2023-01-16 12:38 | PC.NURSE ---
return from [facility] at 1000. Dr. antoine at bedside explaining plan to and daughter. and patient ok with intubation. patient intubated at 1030.
--- NOTE | 2023-01-17 07:22 | WPDPROCEDUR ---
Procedures Intubation Intubation Date: 01/16/23 Intubation Time: 09:45 Consent: Consent was obtained from patient and her at bedside after explanation of risks and benefits. A pre-procedural Time-Out was completed immediately before starting the procedure and confirmed: Patient Identification, Site, Procedure, Patient Position and the Availability of Requisite Equipment: Yes Sedative: etomidate Mg given: 20 Paralytic: rocuronium Mg given: 50 Laryngoscope: fiber optic video scope ET tube size: 7.5 Tube secured depth (cm): 24 Tube secured location: lips Tube placement confirmation: visualized tube passing through cords, equal breath sounds bilaterally, no breath sounds over epigastrium and confirmation by capnometry Patient tolerated procedure: well Intubation complications: none
== END 2023-01-16 12:20 | disposition short-term general hospital (02) | DRG 280 ==
LOC: ANHED 11:38 → ANHIMU 15:44 → ANHICU 23:26
PROVIDERS: Internal Medicine; Internal Medicine Cardiovascular Disease; Physician Assistant; Admitting Provider Internal Medicine; Emergency Provider Emergency Medicine; PCP Internal Medicine; Visit Provider Internal Medicine
PROC: 4A023N7 Measurement of Cardiac Sampling and Pressure, Left Heart, Percutaneous Approach (ICD-10-PCS; CPT 93452; principal; 2023-01-16 06:50)
PROC: (CPT 75630; 2023-01-16 06:50)
DX: I21.4 Non-ST elevation (NSTEMI) myocardial infarction (principal); J96.21 Acute and chronic respiratory failure with hypoxia; J96.22 Acute and chronic respiratory failure with hypercapnia; J44.1 Chronic obstructive pulmonary disease with (acute) exacerbation; I25.10 Atherosclerotic heart disease of native coronary artery without angina pectoris; E03.9 Hypothyroidism, unspecified; K21.9 Gastro-esophageal reflux disease without esophagitis; R73.9 Hyperglycemia, unspecified; E78.5 Hyperlipidemia, unspecified; I73.9 Peripheral vascular disease, unspecified; M19.90 Unspecified osteoarthritis, unspecified site; I95.9 Hypotension, unspecified; F41.9 Anxiety disorder, unspecified; I11.0 Hypertensive heart disease with heart failure; I50.9 Heart failure, unspecified; I71.9 Aortic aneurysm of unspecified site, without rupture; Z20.822 Contact with and (suspected) exposure to COVID-19; Z90.49 Acquired absence of other specified parts of digestive tract; Z95.820 Peripheral vascular angioplasty status with implants and grafts; Z99.81 Dependence on supplemental oxygen; Z90.711 Acquired absence of uterus with remaining cervical stump; Z87.891 Personal history of nicotine dependence; Z91.041 Radiographic dye allergy status
CPT/HCPCS: 31500; 36415; 36600; 71045; 71046; 75630; 80048; 80053; 82375; 82805; 83036; 83050; 83605; 83735; 83880; 84443; 84484; 85025; 85610; 85730; 87636; 93005; 93458; 94002; 94640; 96375; 99285; A9270; C1751; C1769; C1887; C1894; J1200; J1644; J1940; J2250; J2270; J2930; J3010; J7040; J7060